=== PATIENT | female | born 1955 | race Caucasian/White ===

== ENCOUNTER 2017-03-08 09:15 | Day surgery (SDC) | payer BC ==
[~2017-03-08 09:15] MED LIST: Bupivacaine 0.5% 10 ML SDV ONE; Lactated Ringers 1,000 ML IV SCH; Lidocaine 1% 20 ML MDV ONE; Midazolam 1 MG/ML 2 ML SDV ONE; Ondansetron 4 MG/2 ML SDV ONE; Propofol 200 MG/20 ML SDV ONE; ceFAZolin 2 GM in Premix Bag 1 BAG IV ONE; fentaNYL 100 MCG/2 ML SDV ONE
--- NOTE | 2017-03-08 09:46 | PCM.PREANE ---
Preanesthetic Assessment - Anesthesia/Transfusion/Family Hx Anesthesia History: Prior Anesthesia Without Reaction Other Type of Anesthesia Reaction Comment: "I have had problems with N/V post anesthesia in the past" Family History of Anesthesia Reaction: No Transfusion History: No Prior Transfusion(s) Intubation History: Unknown - Review of Systems General: No Symptoms Pulmonary: No Symptoms Cardiovascular: No Symptoms Gastrointestinal: No Symptoms Neurological: No Symptoms Other: Reports: None - Physical Assessment Height: 1.68 m Weight: 78.018 kg ASA Class: 2 Mental Status: Alert & Oriented x3 Airway Class: Mallampati = 2 Dentition: Reports: Normal Dentition, Uriah(s) (upper x4 or 5) Thyro-Mental Finger Breadths: 2 Mouth Opening Finger Breadths: 3 ROM/Head Extension: Full Lungs: Clear to Auscultation, Normal Respiratory Effort Cardiovascular: Regular Rate, Regular Rhythm - Allergies Allergies/Adverse Reactions: Allergies Allergy/AdvReac Type Severity Reaction Status Date / Time sulfamethoxazole Allergy Mouth Sores Verified 11/09/15 23:40 [From Bactrim] trimethoprim [From Bactrim] Allergy Mouth Sores Verified 11/09/15 23:40 - Blood Blood Available: No - Anesthesia Plan Pre-Op Medication Ordered: None - Acknowledgements Anesthesia Type Planned: General Anesthesia Pt an Appropriate Candidate for the Planned Anesthesia: Yes Alternatives and Risks of Anesthesia Discussed w Pt/Guardian: Yes Pt/Guardian Understands and Agrees with Anesthesia Plan: Yes PreAnesthesia Questionnaire HEENT History: Reports: Impaired Vision Other HEENT History: wears glasses Cardiovascular History: Reports: None Respiratory History: Reports: None Other Respiratory History: 15 yr history of smoking, QUIT 20 +yrs ago Gastrointestinal History: Reports: Colon Polyp, Diverticulosis, GERD Other Gastrointestinal History: diverticulosis,h/o C.Diff,occasional heart thomas Genitourinary History: Reports: Renal Calculus 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: Musculoskeletal History: Reports: Fracture Other Musculoskeletal History: hx: fracturing a toe, ganglion cyst left foot Neurological History: Reports: Migraines Psychiatric History: Reports: None Endocrine/Metabolic History: Reports: None Hematologic History: Reports: None Immunologic History: Reports: None Oncologic (Cancer) History: Reports: None Dermatologic History: Reports: None - Infectious Disease History Infectious Disease History: Reports: C-Difficile, Chicken Pox, Shingles - Past Surgical History Head Surgeries/Procedures: Reports: None GI Surgical History: Reports: Cholecystectomy, Colonoscopy Other GI Surgeries/Procedures: Lap Carmelita Female Surgical History: Reports: Hysterectomy Musculoskeletal Surgical History: Reports: Arthroscopic Knee, Other (See Below) Other Musculoskeletal Surgeries/Procedures:: knee arthroscopy x3 (right x2, left x1) - SUBSTANCE USE Smoking Status *Q: Former Smoker Tobacco Use Within Last Twelve Months: Cigarettes Recreational Drug Use History: No - HOME MEDS Home Medications: Home Meds Furosemide [Lasix] 40 mg PO DAILY 06/01/15 [History] Potassium Chloride 20 meq PO DAILY 06/01/15 [History] - CURRENT (IN HOUSE) MEDS Current Meds: Current Medications Lactated Ringer's (Ringers, Lactated) 1,000 mls @ 125 mls/hr IV ASDIRECTED LUPE Discontinued Medications Bupivacaine HCl (Sensorcaine-Mpf 0.5%) Confirm Administered Dose 30 ml .ROUTE .STK-MED ONE Stop: 03/08/17 08:29 Fentanyl (Sublimaze) Confirm Administered Dose 100 mcg .ROUTE .STK-MED ONE Stop: 03/08/17 08:20 Cefazolin Sodium/Dextrose 2 gm (/ Premix) 50 mls @ 100 mls/hr IV ONETIME ONE Stop: 03/08/17 06:29 Lidocaine HCl (Xylocaine 1%) Confirm Administered Dose 20 ml .ROUTE .STK-MED ONE Stop: 03/08/17 08:29 Midazolam HCl (Versed 1 Mg/Ml) Confirm Administered Dose 2 mg .ROUTE .STK-MED ONE Stop: 03/08/17 08:20 Ondansetron HCl (Zofran) Confirm Administered Dose 4 mg .ROUTE .STK-MED ONE Stop: 03/08/17 08:19 Propofol (Diprivan 20 Ml) Confirm Administered Dose 200 mg .ROUTE .STK-MED ONE Stop: 03/08/17 08:20
[2017-03-08] MEDS ORDERED: ePHEDrine 50 MG/ML SDV ONE (10:10)
[2017-03-08] MEDS ORDERED: Ketorolac 30 MG/ML SDV ONE (10:52)
[2017-03-08] MEDS ORDERED: Acetaminophen/HYDROcodone 325-5 MG Tab PO PRN (11:23)
--- NOTE | 2017-03-08 11:27 | PCM.OPNOTE ---
- General Post-Op/Procedure Note Date of Surgery/Procedure: 03/08/17 Operative Procedure(s): excision of ganglion cyst left foot Findings: consistent with diagnosis Pre Op Diagnosis: ganglion cyst left foot Post-Op Diagnosis: ganglion cyst left foot Anesthesia Technique: General LMA Anesthesia Provider: Sandi Goldsmith Pathology: contents and remnants of sac of ganglion cyst left foot EBL in mLs: 3 Complications: none Condition: Good Free Text/Narrative:: materials: 4-0 vicryl, 4-0 prolene injectables: 10 ml 0.5% marcaine plain
--- NOTE | 2017-03-08 11:45 | PN ---
Preoperative Progress Note IDENTIFICATION: The patient is a 61-year-old female. DATE OF SURGERY: March 08, 2017. PREOPERATIVE DIAGNOSIS: Ganglion cyst, left foot. PLANNED PROCEDURE: Excision of ganglion cyst, left foot. CONSENT: Signed and in the chart. ANESTHESIA: General. The patient confirms n.p.o. since midnight. HISTORY AND PHYSICAL: Completed by Dr. Mendiola with no contraindications to surgery. ALLERGIES: Noted to Bactrim and Cipro. MEDICATIONS: 1. Furosemide 40 mg oral tablet 1 tablet by mouth daily. 2. Potassium chloride crystals extended release 20 mEq oral tablet 1 tablet by mouth daily with furosemide or as directed. PAST MEDICAL HISTORY: History of acute medial meniscus tear of the right knee, diverticulitis, elevated glucose, Clostridium difficile infection, colonoscopy, allergic rhinitis, candidiasis of the mouth, conjunctivitis, diverticulosis, hemorrhagic cystitis, migraine headaches, oral aphthous ulcers, weakness, influenza A and scopes of both the knees. Active problems: 1. Bilateral lower extremity edema. 2. Ganglion cyst of the left foot. 3. Left foot pain. 4. Obesity. 5. Paresthesias of bilateral legs. PAST SURGICAL HISTORY: History of complete colonoscopy, history of gallbladder surgery, history of hysterectomy not due to cancer, and history of knee surgery. LABORATORY DATA: Sodium 142, potassium 4.0, chloride 106, CO2 of 30, glucose 96, BUN 19, creatinine 0.7. The patient presents for excision of ganglion cyst, left foot surgery today, no contraindications to surgery are noted. No guarantees given or implied. CHARLEY / MOUSTAPHA /[id number]
[2017-03-08 14:01] VITALS: BP 116/71
--- NOTE | 2017-03-08 19:09 | OR ---
SURGEON: Truman Martinez DPM DATE OF PROCEDURE: 03/08/2017 PREOPERATIVE DIAGNOSIS: Ganglion cyst, left foot. POSTOPERATIVE DIAGNOSIS: Ganglion cyst, left foot. PROCEDURE PERFORMED: Excision of ganglion cyst, left foot. CONSENT: Signed and in the chart. ANESTHESIA: General. HEMOSTASIS: Above-ankle pneumatic tourniquet inflated to a pressure of 250 mmHg after an Esmarch bandage exsanguination of the left foot. JUSTIFICATION FOR THE PROCEDURE: The patient is an established patient of mine, who underwent aspiration of the ganglion cyst in my office a number of months ago and has had a return of the ganglion cyst with worsening of symptoms including a larger size and greater pain and tenderness. The patient desires a treatment which is more likely to be lasting and we discussed the pros and cons of surgery. I explained that even surgically ganglion cysts may return, however, there is a lower recurrence generally than simply aspirating. The patient desires surgical treatment and I agreed to perform surgery. All the patient's questions were answered and no guarantees have been expressed or implied. The patient consented for surgery. The consent was then placed in the patient's chart after being witnessed and signed by the patient. DESCRIPTION OF PROCEDURE: The procedure is excision of ganglion cyst, left foot. The patient was brought to the operating room, placed on the operating table in a supine position. At which time, an aseptic scrub and drape was performed about the patient's left lower extremity and general anesthesia was administered. Esmarch bandage exsanguination was used to exsanguinate the left lower extremity and the pneumatic ankle tourniquet was inflated to a pressure of 250 mmHg. Utilizing the incision line which had been planned with a marking pen prior to inflation of the tourniquet. A curvilinear incision measuring approximately 4 cm was performed over the dorsal lateral rear foot in the area of the cuboid 5th metatarsal articulation directly over the palpated and easily identified protrusion in the skin indicating the presence of the ganglion cyst at that location. Incision was carried down through the skin and subcutaneous tissue, with all small bleeders bovied as necessary. Neurovascular structures were retracted out of the path of the incision and the cyst was immediately identified and was undermined using a combination of blunt and sharp dissection with care being taken to preserve all vital structures and to protect the peroneus tertius tendon to which the cyst was identified to be adhering to. The cyst was ruptured during the course of the excision and the material from within this sac was saved and placed in a sterile specimen, cup along with the remnants of the sac that were dissected for examination by pathology. The site was reinspected and any remaining remnants of the ganglion cyst sac were dissected away and added to the specimen for pathology. The entire area was flushed with copious amounts of normal sterile saline and reinspected at which point, a layered closure began. The deep and subcutaneous tissue was reapproximated using 4-0 Vicryl suture and the superficial skin was closed with 4-0 Prolene suture in a horizontal mattress fashion. 10 mL of 0.5% Marcaine plain was then infiltrated about the surgical site and it was covered with Betadine-soaked Xeroform gauze, 4x4 gauze, fluff 4x4 gauze, Kerlix roll, and secured with an Russ bandage. At which time, the tourniquet was deflated at a time of 46 minutes. The patient had an immediate hyperemic response to all digits of the left foot upon deflation of the tourniquet and tolerated the procedure and anesthesia well with no complications noted. The patient was transported to the recovery room, and after a brief stay in the recovery room, the patient is to be discharged later today. She has written instructions being provided as well as oral for postoperative care and follow up with me on Monday in my office. The patient has been provided with my cell phone number in case any concerns arise. The patient has been provided with a prescription for analgesic care. The patient has been provided with a shower bag to keep her dressings clean and dry. The patient has been provided and had a postoperative shoe affixed in the recovery room today to protect her foot and is to minimize weightbearing. CHARLEY / MOUSTAPHA /[id number]
== END 2017-03-08 12:58 | disposition home or self-care (01) ==
LOC: MW.SDS 09:15
PROVIDERS: ATTEND Podiatrist Foot & Ankle Surgery
DX: M67.472 Ganglion, left ankle and foot (principal); E66.9 Obesity, unspecified; Z88.1 Allergy status to other antibiotic agents; Z88.8 Allergy status to other drugs, medicaments and biological substances; J30.2 Other seasonal allergic rhinitis; Z79.899 Other long term (current) drug therapy; Z90.710 Acquired absence of both cervix and uterus; Z98.890 Other specified postprocedural states; Z87.891 Personal history of nicotine dependence; Z68.27 Body mass index [BMI] 27.0-27.9, adult
CPT/HCPCS: 28090; J1885; J2250; J2405; J3010; J7120; 01480; 88304; J2704

== ENCOUNTER 2019-05-07 10:04 | Day surgery (SDC) | payer BC ==
[~2019-05-07 10:04] MED LIST changes: -Bupivacaine 0.5% 10 ML SDV ONE; -Lidocaine 1% 20 ML MDV ONE; +Lidocaine 2% 5 ML SDV ONE; -Midazolam 1 MG/ML 2 ML SDV ONE; -Ondansetron 4 MG/2 ML SDV ONE; +Sodium Chloride 0.9% 10 ML SDV IV PRN; +Sodium Chloride 0.9% 10 ML Syringe FLUSH PRN; +Sodium Chloride 0.9% 2.5 ML Syringe FLUSH PRN; -ceFAZolin 2 GM in Premix Bag 1 BAG IV ONE
--- NOTE | 2019-05-07 10:21 | PCM.PREANE ---
Preanesthetic Assessment - Anesthesia/Transfusion/Family Hx Anesthesia History: Prior Anesthesia Without Reaction Other Type of Anesthesia Reaction Comment: "I have had problems with N/V post anesthesia in the past" Family History of Anesthesia Reaction: No Transfusion History: No Prior Transfusion(s) Intubation History: Unknown - Review of Systems General: No Symptoms Pulmonary: No Symptoms Cardiovascular: No Symptoms Gastrointestinal: Abdominal Pain (rectal pain), Constipation, Diarrhea, Other (h /o colon polyps, diverticulosis and diverticulitis) Neurological: No Symptoms Other: Reports: None - Physical Assessment Height: 5 ft 6 in Weight: 80.286 kg ASA Class: 2 Mental Status: Alert & Oriented x3 Airway Class: Mallampati = 2 Dentition: Reports: Normal Dentition Thyro-Mental Finger Breadths: 2 Mouth Opening Finger Breadths: 3 ROM/Head Extension: Full Lungs: Clear to Auscultation, Normal Respiratory Effort Cardiovascular: Regular Rate, Regular Rhythm - Allergies Allergies/Adverse Reactions: Allergies Allergy/AdvReac Type Severity Reaction Status Date / Time sulfamethoxazole Allergy Mouth Sores Verified 05/01/19 08:57 [From Bactrim] trimethoprim [From Bactrim] Allergy Mouth Sores Verified 05/01/19 08:57 - Blood Blood Available: No - Anesthesia Plan Pre-Op Medication Ordered: None - Acknowledgements Anesthesia Type Planned: MAC Pt an Appropriate Candidate for the Planned Anesthesia: Yes Alternatives and Risks of Anesthesia Discussed w Pt/Guardian: Yes Pt/Guardian Understands and Agrees with Anesthesia Plan: Yes PreAnesthesia Questionnaire HEENT History: Reports: Allergic Rhinitis, Impaired Vision, Other (See Below) Other HEENT History: wears glasses Cardiovascular History: Reports: None Respiratory History: Reports: None Gastrointestinal History: Reports: Colon Polyp, Diverticulosis Other Gastrointestinal History: diverticulosis,h/o C.Diff,occasional heart burn , hx diverticulitis Genitourinary History: Reports: Renal Calculus 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: Musculoskeletal History: Reports: Back Pain, Chronic, Fracture Other Musculoskeletal History: hx: fracturing a toe, ganglion cyst left foot Neurological History: Reports: None Psychiatric History: Reports: None Endocrine/Metabolic History: Reports: None Hematologic History: Reports: None Immunologic History: Reports: None Oncologic (Cancer) History: Reports: None Dermatologic History: Reports: None - Infectious Disease History Infectious Disease History: Reports: C-Difficile, Chicken Pox, Shingles - Past Surgical History Head Surgeries/Procedures: Reports: None HEENT Surgical History: Reports: None Cardiovascular Surgical History: Reports: None Respiratory Surgical History: Reports: None GI Surgical History: Reports: Cholecystectomy, Colonoscopy ( x5, last one 3 years ago) Other GI Surgeries/Procedures: Lap Carmelita Female Surgical History: Reports: Hysterectomy Endocrine Surgical History: Reports: None Neurological Surgical History: Reports: None Musculoskeletal Surgical History: Reports: Arthroscopic Knee, Other (See Below) Other Musculoskeletal Surgeries/Procedures:: knee arthroscopy x3 (right x2, left x1) Oncologic Surgical History: Reports: None Dermatological Surgical History: Reports: None - SUBSTANCE USE Smoking Status *Q: Former Smoker Tobacco Use Within Last Twelve Months: No Recreational Drug Use History: No - HOME MEDS Home Medications: Home Meds Furosemide [Lasix] 40 mg PO DAILY PRN 06/01/15 [History] Potassium Chloride 20 meq PO DAILY PRN 06/01/15 [History] Azelastine/Fluticasone [Dymista Nasal Mobile] 1 spray NASBOTH ASDIRECTED PRN 04/09 [History] LORazepam [Ativan] 0.5 - 1 tab PO ASDIRECTED PRN 05/01/19 [History] - CURRENT (IN HOUSE) MEDS Current Meds: Current Medications Lactated Ringer's (Ringers, Lactated) 1,000 mls @ 125 mls/hr IV ASDIRECTED LUPE Sodium Chloride (Saline Flush) 10 ml FLUSH ASDIRECTED PRN PRN Reason: Keep Vein Open Sodium Chloride (Saline Flush) 2.5 ml FLUSH ASDIRECTED PRN PRN Reason: Keep Vein Open Sodium Chloride (Saline Flush) 10 ml FLUSH ASDIRECTED PRN PRN Reason: Keep Vein Open Sodium Chloride (Saline Flush) 2.5 ml FLUSH ASDIRECTED PRN PRN Reason: Keep Vein Open Sodium Chloride (Normal Saline) 10 ml IV ASDIRECTED PRN PRN Reason: IV Use Discontinued Medications Fentanyl (Sublimaze) Confirm Administered Dose 100 mcg .ROUTE .STK-MED ONE Stop: 05/07/19 09:37 Lidocaine (Xylocaine-Mpf 2%) Confirm Administered Dose 5 ml .ROUTE .STK-MED ONE Stop: 05/07/19 09:37 Propofol (Diprivan 20 Ml) Confirm Administered Dose 400 mg .ROUTE .STK-MED ONE Stop: 05/07/19 09:37
--- NOTE | 2019-05-07 12:02 | PCM.POSTAN ---
POST ANESTHESIA ASSESSMENT - MENTAL STATUS Mental Status: Alert, Oriented - VITAL SIGNS Vital Signs: Last Vital Signs Temp 36.4 C 05/07/19 11:32 Pulse 69 05/07/19 11:51 Resp 17 05/07/19 11:51 BP 106/57 L 05/07/19 11:51 Pulse Ox 95 05/07/19 11:51 - RESPIRATORY Respiratory Status: Respiratory Rate WNL, Airway Patent, O2 Saturation Stable - CARDIOVASCULAR CV Status: Pulse Rate WNL, Blood Pressure Stable - GASTROINTESTINAL GI Status: No Symptoms - PAIN Pain Score: 0 - POST OP HYDRATION Hydration Status: Adequate & Stable - OBSERVATIONS Free Text/Narrative:: no anesthesia problems
--- NOTE | 2019-05-07 12:20 | PCM48HPAN ---
Post Anesthesia Note - EVALUATION WITHIN 48HRS OF ANESTHETIC Vital Signs in Normal Range: Yes Patient Participated in Evaluation: Yes Respiratory Function Stable: Yes Airway Patent: Yes Cardiovascular Function Stable: Yes Hydration Status Stable: Yes Pain Control Satisfactory: Yes Nausea and Vomiting Control Satisfactory: Yes Mental Status Recovered: Yes Vital Signs: Last Vital Signs Temp 36.4 C 05/07/19 11:32 Pulse 69 05/07/19 11:51 Resp 17 05/07/19 11:51 BP 106/57 L 05/07/19 11:51 Pulse Ox 95 05/07/19 11:51 - COMMENTS/OBSERVATIONS Free Text/Narrative:: no anesthesia problems
[2019-05-07 12:22] VITALS: BP 128/58; PULSE 87
--- NOTE | 2019-05-07 13:30 | PCM.OPNOTE ---
- General Post-Op/Procedure Note Date of Surgery/Procedure: 05/07/19 Operative Procedure(s): Diagnostic colonoscopy Findings: diverticulosis throughout the colon. Ascending colon polyp Pre Op Diagnosis: Diagnostic colonoscopy Post-Op Diagnosis: Ascending colon polyp, diverticulosis Anesthesia Technique: MELVI Primary Surgeon: Tiffanie Archuleta Condition: Good Free Text/Narrative:: Intake & Output 05/06/19 05/07/19 05/07/19 22:59 06:59 14:59 Intake Total 1000 Balance 1000
--- NOTE | 2019-05-09 18:33 | OR ---
SURGEON: TIFFANIE ARCHULETA MD DATE OF PROCEDURE: 05/07/2019 PREOPERATIVE DIAGNOSIS: Change in bowel habits. POSTOPERATIVE DIAGNOSES: 1. Diverticulosis. 2. Ascending colon polyp. PROCEDURE PERFORMED: Diagnostic colonoscopy. PRIMARY SURGEON: Tiffanie Archuleta MD. ANESTHESIA: MAC. INSTRUMENT USED: Olympus colonoscope. EXTENT OF EXAM: To the cecum. PREPARATION: Good. LIMITATIONS: None. INDICATIONS FOR EXAMINATION: The patient is a 64-year-old female who presents with a change in her bowel habits and lower abdominal pain. The decision was made to proceed with a diagnostic colonoscopy. I explained the procedure; expected perioperative course; and risks including bleeding, infection, or damage to surrounding structures including perforation. The patient verbalized understanding and wishes to proceed. PROCEDURE IN DETAIL: The patient was brought into the endoscopy suite and placed in the left lateral decubitus position. A time-out was completed verifying the patient's name, age, date of , allergies, and procedure to be performed. Monitored anesthesia care was induced and continuous oxygen was provided via nasal cannula throughout the procedure. After adequate sedation was achieved, a digital rectal exam was performed. This exam was within normal limits. A well-lubricated colonoscope was inserted in the rectum and advanced under direct visualization to the level of the cecum. The cecum was identified by both visual and anatomic landmarks. A photograph was taken of the cecal cap; however, I was unable to retroflex the scope within the cecum due to looping of the scope more proximally. The scope was then straightened out and fully withdrawn while examining the color, texture, anatomy, and integrity of the mucosa from the cecum to the anal canal. The patient was found to have diverticulosis throughout the sigmoid colon. In the ascending colon, a small sessile polyp was noted. This was removed in piecemeal fashion using cold biopsy forceps. The scope was then brought into the rectum and retroflexed to allow visualization of the anal canal opening. This appeared normal and a photograph was taken. The scope was then straightened out and fully withdrawn. The cecum to anus time was 9 minutes. The patient tolerated the procedure well and was taken to the PACU in stable condition. ENDOSCOPIC DIAGNOSES: 1. Diverticulosis. 2. Ascending colon polyp. RECOMMENDATIONS: Follow up in clinic in 2 weeks. PAVEL GERARD /[id number]
== END 2019-05-07 12:27 | disposition home or self-care (01) ==
LOC: MW.SDS 10:04
PROVIDERS: ATTEND Surgery
DX: K57.30 Diverticulosis of large intestine without perforation or abscess without bleeding (principal); K63.5 Polyp of colon; M47.816 Spondylosis without myelopathy or radiculopathy, lumbar region; G43.909 Migraine, unspecified, not intractable, without status migrainosus; J30.2 Other seasonal allergic rhinitis; Z88.2 Allergy status to sulfonamides; Z88.1 Allergy status to other antibiotic agents; Z87.891 Personal history of nicotine dependence; Z79.899 Other long term (current) drug therapy
CPT/HCPCS: 45380; J2001; J2704; J3010; J7120; 88305

== ENCOUNTER 2019-07-12 05:59 | Observation (INO) | payer BC ==
[2019-07-12] MEDS ORDERED: Sodium Chloride 0.9% 2.5 ML Syringe FLUSH PRN (06:05)
[2019-07-12] MEDS ORDERED: Sodium Chloride 0.9% 10 ML Syringe FLUSH PRN (06:05)
[2019-07-12] MEDS ORDERED: Sodium Chloride 0.9% 10 ML SDV IV PRN (06:05)
--- NOTE | 2019-07-12 06:14 | EDM.PDOC ---
ED HPI GENERAL MEDICAL PROBLEM - General Chief Complaint: Neurological Problem Stated Complaint: DISORIENTED Time Seen by Provider: 07/12/19 06:07 Source of Information: Reports: Patient, Significant Other - History of Present Illness INITIAL COMMENTS - FREE TEXT/NARRATIVE: Patient is a 64-year-old female with no medical problems who presents to the ER for confusion. She was getting ready for work and then she woke her up and told him "I am confused". That is all she keeps telling us over and over. The patient's states that all of her recent memory seems to be gone. She does not recall things that she put down the night before, she does not know the time or date, she recognizes him but she does not recognize some of the grandchildren,. There is no complaints of any speech impediments, weakness , recent trauma, fevers, or any other acute complaints. - Related Data Allergies Allergy/AdvReac Type Severity Reaction Status Date / Time sulfamethoxazole Allergy Mouth Sores Verified 07/12/19 11:42 [From Bactrim] trimethoprim [From Bactrim] Allergy Mouth Sores Verified 07/12/19 11:42 Home Meds: Home Meds Furosemide [Lasix] 40 mg PO DAILY PRN 06/01/15 [History] Potassium Chloride 20 meq PO DAILY PRN 06/01/15 [History] Azelastine/Fluticasone [Dymista Nasal [place]] 1 spray NASBOTH ASDIRECTED PRN 04/09 [History] LORazepam [Ativan] 0.5 - 1 tab PO ASDIRECTED PRN 05/01/19 [History] Past Medical History HEENT History: Reports: Allergic Rhinitis, Impaired Vision, Other (See Below) Other HEENT History: wears glasses Cardiovascular History: Reports: None Respiratory History: Reports: None Gastrointestinal History: Reports: Colon Polyp, Diverticulosis Other Gastrointestinal History: diverticulosis,h/o C.Diff,occasional heart burn , hx diverticulitis Genitourinary History: Reports: Renal Calculus [employer] History: Reports: Musculoskeletal History: Reports: Back Pain, Chronic, Fracture Other Musculoskeletal History: hx: fracturing a toe, ganglion cyst left foot Neurological History: Reports: None Psychiatric History: Reports: None Endocrine/Metabolic History: Reports: None Hematologic History: Reports: None Immunologic History: Reports: None Oncologic (Cancer) History: Reports: None Dermatologic History: Reports: None - Infectious Disease History Infectious Disease History: Reports: C-Difficile, Chicken Pox, Shingles - Past Surgical History Head Surgeries/Procedures: Reports: None HEENT Surgical History: Reports: None Cardiovascular Surgical History: Reports: None Respiratory Surgical History: Reports: None GI Surgical History: Reports: Cholecystectomy, Colonoscopy Other GI Surgeries/Procedures: Lap [place] Female Surgical History: Reports: Hysterectomy Endocrine Surgical History: Reports: None Neurological Surgical History: Reports: None Musculoskeletal Surgical History: Reports: Arthroscopic Knee, Other (See Below) Other Musculoskeletal Surgeries/Procedures:: knee arthroscopy x3 (right x2, left x1) Oncologic Surgical History: Reports: None Dermatological Surgical History: Reports: None Social & Family History - Family History Family Medical History: Noncontributory ED ROS GENERAL - Review of Systems Review Of Systems: See Below (Patient has altered mental status) - Physical Exam Exam: See Below Text/Narrative:: Constitutional: No acute distress, Non-toxic appearance, appears anxious HEENT.: Normocephalic, Atraumatic, PERRL, EOMI, External ears are atraumatic, nares are patent without epistaxis Neck: Normal range of motion, Trachea Midline, No stridor Respiratory.: No respiratory distress, No tachypnea, Lungs Clear to Auscultation bilaterally without wheezes, rales, or rhonchi Cardiovascular.: Regular rate and Rhythm without murmurs, rubs, or gallops, good peripheral perfusion GI: Abdomen soft and non tender, no masses, no rebound, rigidity, or guarding Genital Urinary: Deferred Musculoskeletal: Good range of motion. All 4 extremities present and atraumatic , no edema Back: Full Range of Motion Skin: Warm, Dry, Color is ethnicity appropriate, No acute rash. Lymphatic: No lymphadenopathy noted Neurological: Alert, Awake, oriented to self only, No focal deficits noted appreciate, GCS 15, amnestic, recognizes her , does not know the names of most of her grandchildren, does not know recent events, NIH 0 Psych: Pleasant and cooperative but appears anxious Course - Vital Signs Text/Narrative:: While the differential diagnosis is broad, I do not feel that the patient is exhibiting a stroke as her only symptom is amnesia, possibly consistent with transient global amnesia or a recent seizure. She has no speech impediment, no sensory loss, no motor complaints, no gait abnormalities, etc. However, given the obvious altered mental status changes a work-up has been initiated which will include a CT scan of the brain to look for obvious pathology such as an intracranial hemorrhage, subarachnoid hemorrhage, hydrocephalus, obvious brain mass, cerebral edema, hyponatremia, hypernatremia, hyperosmolar syndrome, leukemias, lymphomas, acute renal failure, etc. Last Recorded V/S: Last Vital Signs Temp 36.7 C 07/13/19 11:00 Pulse 75 07/13/19 11:00 Resp 16 07/13/19 07:20 BP 121/66 07/13/19 11:00 Pulse Ox 94 L 07/13/19 11:00 - Orders/Labs/Meds Labs: Laboratory Tests 07/12/19 07/12/19 07/12/19 Range/Units 06:08 06:08 06:24 WBC 4.21 (4.0-11.0) K/uL RBC 4.68 (4.30-5.90) M/uL Hgb 14.7 (12.0-16.0) g/dL Hct 42.9 (36.0-46.0) % MCV 91.7 (80.0-98.0) fL MCH 31.4 (27.0-32.0) pg MCHC 34.3 (31.0-37.0) g/dL RDW Std Deviation 47.8 (28.0-62.0) fl RDW Coeff of Cat 14 (11.0-15.0) % Plt Count 192 (150-400) K/uL MPV 9.30 (7.40-12.00) fL Neut % (Auto) 56.3 (48.0-80.0) % Lymph % (Auto) 26.6 (16.0-40.0) % [place] % (Auto) 12.8 (0.0-15.0) % Eos % (Auto) 3.1 (0.0-7.0) % Baso % (Auto) 1.2 (0.0-1.5) % Neut # (Auto) 2.4 (1.4-5.7) K/uL Lymph # (Auto) 1.1 (0.6-2.4) K/uL [place] # (Auto) 0.5 (0.0-0.8) K/uL Eos # (Auto) 0.1 (0.0-0.7) K/uL Baso # (Auto) 0.1 (0.0-0.1) K/uL Nucleated RBC % 0.0 /100WBC Nucleated RBCs # 0 K/uL Sodium 145 (136-145) mmol/L Potassium 3.5 (3.5-5.1) mmol/L Chloride 106 (98-107) mmol/L Carbon Dioxide 29.1 (21.0-32.0) mmol/L BUN 16 (7.0-18.0) mg/dL Creatinine 0.8 (0.6-1.0) mg/dL Est Cr Clr Drug Dosing 67.38 mL/min Estimated GFR (MDRD) > 60.0 ml/min Glucose 119 H (74-106) mg/dL Calcium 9.1 (8.5-10.1) mg/dL Total Bilirubin 1.4 H (0.2-1.0) mg/dL AST 16 (15-37) IU/L ALT 29 (14-63) IU/L Alkaline Phosphatase 122 H (46-116) U/L Total Protein 6.6 (6.4-8.2) g/dL Albumin 3.7 (3.4-5.0) g/dL Globulin 2.9 (2.6-4.0) g/dL Albumin/Globulin Ratio 1.3 (0.9-1.6) Urine Color YELLOW Urine Appearance CLEAR Urine pH 6.0 (5.0-8.0) Ur Specific [place] 1.020 (1.001-1.035) Urine Protein NEGATIVE (NEGATIVE) mg/dL Urine Glucose (UA) NEGATIVE (NEGATIVE) mg/dL Urine Ketones NEGATIVE (NEGATIVE) mg/dL Urine Occult Blood NEGATIVE (NEGATIVE) Urine Nitrite NEGATIVE (NEGATIVE) Urine Bilirubin NEGATIVE (NEGATIVE) Urine Urobilinogen 0.2 (<2.0) EU/dL Ur Leukocyte Esterase NEGATIVE (NEGATIVE) Urine RBC 0-1 (0-2/HPF) Urine WBC 0-1 (0-5/HPF) Ur Epithelial Cells RARE (NONE-FEW) Urine Bacteria RARE (NEGATIVE) Urine Opiates Screen (NEGATIVE) Ur Oxycodone Screen (NEGATIVE) Urine Methadone Screen (NEGATIVE) Ur Barbiturates Screen (NEGATIVE) Ur Phencyclidine Scrn (NEGATIVE) Ur Amphetamine Screen (NEGATIVE) U Methamphetamines Scrn (NEGATIVE) U Benzodiazepines Scrn (NEGATIVE) U Cocaine Metab Screen (NEGATIVE) U Marijuana (THC) Screen (NEGATIVE) Ethyl Alcohol <3 mg/dL 07/12/19 Range/Units 06:24 WBC (4.0-11.0) K/uL RBC (4.30-5.90) M/uL Hgb (12.0-16.0) g/dL Hct (36.0-46.0) % MCV (80.0-98.0) fL MCH (27.0-32.0) pg MCHC (31.0-37.0) g/dL RDW Std Deviation (28.0-62.0) fl RDW Coeff of Cat (11.0-15.0) % Plt Count (150-400) K/uL MPV (7.40-12.00) fL Neut % (Auto) (48.0-80.0) % Lymph % (Auto) (16.0-40.0) % [place] % (Auto) (0.0-15.0) % Eos % (Auto) (0.0-7.0) % Baso % (Auto) (0.0-1.5) % Neut # (Auto) (1.4-5.7) K/uL Lymph # (Auto) (0.6-2.4) K/uL [place] # (Auto) (0.0-0.8) K/uL Eos # (Auto) (0.0-0.7) K/uL Baso # (Auto) (0.0-0.1) K/uL Nucleated RBC % /100WBC Nucleated RBCs # K/uL Sodium (136-145) mmol/L Potassium (3.5-5.1) mmol/L Chloride (98-107) mmol/L Carbon Dioxide (21.0-32.0) mmol/L BUN (7.0-18.0) mg/dL Creatinine (0.6-1.0) mg/dL Est Cr Clr Drug Dosing mL/min Estimated GFR (MDRD) ml/min Glucose (74-106) mg/dL Calcium (8.5-10.1) mg/dL Total Bilirubin (0.2-1.0) mg/dL AST (15-37) IU/L ALT (14-63) IU/L Alkaline Phosphatase (46-116) U/L Total Protein (6.4-8.2) g/dL Albumin (3.4-5.0) g/dL Globulin (2.6-4.0) g/dL Albumin/Globulin Ratio (0.9-1.6) Urine Color Urine Appearance Urine pH (5.0-8.0) Ur Specific [place] (1.001-1.035) Urine Protein (NEGATIVE) mg/dL Urine Glucose (UA) (NEGATIVE) mg/dL Urine Ketones (NEGATIVE) mg/dL Urine Occult Blood (NEGATIVE) Urine Nitrite (NEGATIVE) Urine Bilirubin (NEGATIVE) Urine Urobilinogen (<2.0) EU/dL Ur Leukocyte Esterase (NEGATIVE) Urine RBC (0-2/HPF) Urine WBC (0-5/HPF) Ur Epithelial Cells (NONE-FEW) Urine Bacteria (NEGATIVE) Urine Opiates Screen NEGATIVE (NEGATIVE) Ur Oxycodone Screen NEGATIVE (NEGATIVE) Urine Methadone Screen NEGATIVE (NEGATIVE) Ur Barbiturates Screen NEGATIVE (NEGATIVE) Ur Phencyclidine Scrn NEGATIVE (NEGATIVE) Ur Amphetamine Screen NEGATIVE (NEGATIVE) U Methamphetamines Scrn NEGATIVE (NEGATIVE) U Benzodiazepines Scrn NEGATIVE (NEGATIVE) U Cocaine Metab Screen NEGATIVE (NEGATIVE) U Marijuana (THC) Screen NEGATIVE (NEGATIVE) Ethyl Alcohol mg/dL Meds: Medications Discontinued Medications Generic Name Dose Route Start Last Admin Trade Name Freq PRN Reason Stop Dose Admin Acetaminophen 650 mg 07/12/19 12:52 07/13/19 11:05 Tylenol PO 650 mg Q4H PRN Administration Pain (Mild 1-3)/fever Docusate Sodium 100 mg 07/12/19 12:52 Colace PO BID PRN Constipation Enoxaparin Sodium 40 mg 07/12/19 13:00 07/12/19 13:37 Lovenox SUBCUT 40 mg Q24H LUPE Administration Furosemide 40 mg 07/12/19 12:55 Lasix PO DAILY PRN Edema Gadobenate [place] 20 ml 07/12/19 08:11 07/12/19 08:29 Multihance IVPUSH 07/12/19 08:12 15 ml ONETIME STA Administration Ibuprofen 800 mg 07/12/19 12:52 Motrin PO Q6H PRN Pain (mild 1-3) Ibuprofen 400 mg 07/13/19 11:54 07/13/19 12:56 Motrin PO 07/13/19 11:55 400 mg ONETIME ONE Administration Lorazepam 0.5 mg 07/12/19 07:35 07/12/19 07:41 Ativan IVPUSH 07/12/19 07:36 0.5 mg ONETIME ONE Administration Lorazepam 1 mg 07/12/19 12:55 Ativan PO Q8H PRN Anxiety Ondansetron HCl 4 mg 07/12/19 12:52 Zofran Odt PO Q4H PRN nausea, able to take PO Ondansetron HCl 4 mg 07/12/19 12:52 Zofran IVPUSH Q4H PRN Nausea Azelastine/ 1 each 07/12/19 12:55 Fluticasone [Dymista NASBOTH Nasal [place]] 1 ASDIRECTED PRN [place] sinus congestion Polyethylene Glycol 17 gm 07/12/19 12:52 Miralax PO DAILY PRN Constipation Sodium Chloride 10 ml 07/12/19 06:05 07/12/19 09:31 Saline Flush FLUSH 10 ml ASDIRECTED PRN Administration Keep Vein Open Sodium Chloride 2.5 ml 07/12/19 06:05 07/12/19 09:31 Saline Flush FLUSH 2.5 ml ASDIRECTED PRN Administration Keep Vein Open Sodium Chloride 10 ml 07/12/19 06:05 07/12/19 09:31 Normal Saline IV 10 ml ASDIRECTED PRN Administration IV Use Temazepam 15 mg 07/12/19 12:52 Restoril PO BEDTIME PRN Sleep Departure - Departure Time of Disposition: 07:00 Disposition: Admitted As Inpatient 67 Condition: Good, Fair Clinical Impression: Altered mental status - Discharge Information *PRESCRIPTION DRUG MONITORING PROGRAM REVIEWED*: Not Applicable *COPY OF PRESCRIPTION DRUG MONITORING REPORT IN PATIENT LUZMARIA: Not Applicable Sepsis Event Note - Focused Exam Date Exam was Performed: 07/23/19 Time Exam was Performed: 19:07
--- NOTE | 2019-07-12 06:30 | CT ---
INDICATION: Altered mental status TECHNIQUE: CT head without contrast. COMPARISON: None. FINDINGS: CSF spaces: Within normal limits for age. Brain parenchyma and extra-axial spaces: The perez-white differentiation is normal. No sign of mass, hemorrhage, or midline shift. No extra-axial fluid collection. Skull base and calvarium: The visualized paranasal sinuses and mastoid air cells demonstrate no acute or significant findings. The visualized orbits are grossly unremarkable. No skull fractures. IMPRESSION: Unremarkable noncontrast head CT. Please note that all CT scans at this facility use dose modulation, iterative reconstruction, and/or weight-based dosing when appropriate to reduce radiation dose to as low as reasonably achievable. Dictated by Eloy Reynolds MD @ Jul 12 2019 6:27AM Signed by Dr. Eloy Reynolds @ Jul 12 2019 6:29AM
[2019-07-12 06:45] LABS: BLOOD UREA NITROGEN,BUN 16 mg/dL (7.0-18.0); CARBON DIOXIDE,CO2 29.1 mmol/L (21.0-32.0); CHLORIDE,CL 106 mmol/L (98-107); GLUCOSE RANDOM 119 mg/dL (74-106); POTASSIUM,K 3.5 mmol/L (3.5-5.1); SODIUM,NA 145 mmol/L (136-145)
[2019-07-12] MEDS ORDERED: LORazepam 2 MG/ML SDV IVPUSH ONE (07:35)
[2019-07-12] MEDS ORDERED: Gadobenate Dimeglumine 529 MG/ML 20 ML SDV IVPUSH STA (08:11)
--- NOTE | 2019-07-12 09:35 | MR ---
INDICATION: New onset confusion. TECHNIQUE: MRI brain: Multiplanar multisequence MR images were acquired through the brain prior to and following administration of intravenous contrast. MRA head: 3D [id number] MRA images were acquired. COMPARISON: CT brain 07/12/2019. FINDINGS: MRI brain: Motion artifact degrades multiple sequences, including marked degradation of the sagittal T1 sequence. The ventricles and sulci within normal limits for patient age. No mass effect or midline shift. Punctate focus of T2 FLAIR hyperintensity within the subcortical white matter of the anterior left frontal lobe (series 17, image 18), nonspecific though potentially related to migraine headaches or minimal chronic microvascular ischemic changes. No diffusion restriction to suggest acute infarction. No intracranial hemorrhage or pathologic extra-axial fluid collection. No pathologic intracranial enhancement. The major arterial flow voids of the skullbase are preserved. The globes are symmetric in size. The paranasal sinuses are well aerated. The mastoid air cells are clear. MRA head: Motion artifact mildly degrades image quality. The visualized internal carotid, middle cerebral, and anterior cerebral arteries are patent without significant narrowing. The vertebral, basilar, and posterior cerebral arteries are patent without significant narrowing. No intracranial aneurysm. IMPRESSION: 1. No acute intracranial abnormality. 2. No MRA abnormality of the visualized intracranial arteries. Dictated by Magdaleno Bender MD @ Jul 12 2019 9:24AM Signed by Dr. Magdaleno Bender @ Jul 12 2019 9:34AM
--- NOTE | 2019-07-12 09:35 | MR ---
INDICATION: New onset confusion. TECHNIQUE: MRI brain: Multiplanar multisequence MR images were acquired through the brain prior to and following administration of intravenous contrast. MRA head: 3D [id number] MRA images were acquired. COMPARISON: CT brain 07/12/2019. FINDINGS: MRI brain: Motion artifact degrades multiple sequences, including marked degradation of the sagittal T1 sequence. The ventricles and sulci within normal limits for patient age. No mass effect or midline shift. Punctate focus of T2 FLAIR hyperintensity within the subcortical white matter of the anterior left frontal lobe (series 17, image 18), nonspecific though potentially related to migraine headaches or minimal chronic microvascular ischemic changes. No diffusion restriction to suggest acute infarction. No intracranial hemorrhage or pathologic extra-axial fluid collection. No pathologic intracranial enhancement. The major arterial flow voids of the skullbase are preserved. The globes are symmetric in size. The paranasal sinuses are well aerated. The mastoid air cells are clear. MRA head: Motion artifact mildly degrades image quality. The visualized internal carotid, middle cerebral, and anterior cerebral arteries are patent without significant narrowing. The vertebral, basilar, and posterior cerebral arteries are patent without significant narrowing. No intracranial aneurysm. IMPRESSION: 1. No acute intracranial abnormality. 2. No MRA abnormality of the visualized intracranial arteries. Dictated by Magdaleno Bender MD @ Jul 12 2019 9:18AM Signed by Dr. Magdaleno Bender @ Jul 12 2019 9:33AM
--- NOTE | 2019-07-12 12:50 | PCM.CONS ---
H&P History of Present Illness - General Date of Service: 07/12/19 Admit Problem/Dx: Admission Diagnosis/Problem Admission Diagnosis/Problem Amnesia - History of Present Illness Initial Comments - Free Text/Narative: She remembers going to bed last night around 10 pm feeling fine. Per her , she got up at 4 am, took a shower, did her usual routine before work and then came to wake him up telling him she was confused and that she needed to go to the ED. She then proceeded to say and ask the same things repeatedly. She knew her . She has no recollection of any of this or going to the ED. She vaguely remembers being in the MRI. Her notes that the memory is improving, but she is still repeating herself. No history of LOC, staring spells, clonic jerks. No OTC medications or illicits. - Related Data Allergies/Adverse Reactions: Allergies Allergy/AdvReac Type Severity Reaction Status Date / Time sulfamethoxazole Allergy Mouth Sores Verified 07/12/19 11:42 [From Bactrim] trimethoprim [From Bactrim] Allergy Mouth Sores Verified 07/12/19 11:42 Home Medications: Home Meds Furosemide [Lasix] 40 mg PO DAILY PRN 06/01/15 [History] Potassium Chloride 20 meq PO DAILY PRN 06/01/15 [History] Azelastine/Fluticasone [Dymista Nasal [place]] 1 spray NASBOTH ASDIRECTED PRN 04/09 [History] LORazepam [Ativan] 0.5 - 1 tab PO ASDIRECTED PRN 05/01/19 [History] Past Medical History HEENT History: Reports: Allergic Rhinitis, Impaired Vision, Other (See Below) Other HEENT History: wears glasses Cardiovascular History: Reports: None Respiratory History: Reports: None Gastrointestinal History: Reports: Colon Polyp, Diverticulosis Other Gastrointestinal History: diverticulosis,h/o C.Diff,occasional heart burn , hx diverticulitis Genitourinary History: Reports: Renal Calculus [employer] History: Reports: Musculoskeletal History: Reports: Back Pain, Chronic, Fracture Other Musculoskeletal History: hx: fracturing a toe, ganglion cyst left foot Neurological History: Reports: Migraines Psychiatric History: Reports: None Endocrine/Metabolic History: Reports: None Hematologic History: Reports: None Immunologic History: Reports: None Oncologic (Cancer) History: Reports: None Dermatologic History: Reports: None - Infectious Disease History Infectious Disease History: Reports: C-Difficile, Chicken Pox, Shingles - Past Surgical History Head Surgeries/Procedures: Reports: None HEENT Surgical History: Reports: None Cardiovascular Surgical History: Reports: None Respiratory Surgical History: Reports: None GI Surgical History: Reports: Cholecystectomy, Colonoscopy Other GI Surgeries/Procedures: Lap [place] Female Surgical History: Reports: Hysterectomy Endocrine Surgical History: Reports: None Neurological Surgical History: Reports: None Musculoskeletal Surgical History: Reports: Arthroscopic Knee, Other (See Below) Other Musculoskeletal Surgeries/Procedures:: knee arthroscopy x3 (right x2, left x1) Oncologic Surgical History: Reports: None Dermatological Surgical History: Reports: Skin Biopsy Social & Family History - Family History Family Medical History: Noncontributory Cardiac: Reports: Hypertension, [place] Other Neurological Family History: Father had a stroke Endocrine/Metabolic: Reports: Diabetes, type II Oncologic: Reports: Non-Hodgkin's Lymphoma, Prostate - Tobacco Use Smoking Status *Q: Former Smoker Years of Tobacco use: 15 Packs/Tins Daily: 1 Used Tobacco, but Quit: Yes Month/Year Tobacco Last Used: 1984 - Caffeine Use Caffeine Use: Reports: Coffee Caffeine Use Comment: 1 Cup/day - Recreational Drug Use Recreational Drug Use: No H&P Review of Systems - Review of Systems: Review Of Systems: Comprehensive ROS is negative, except as noted in HPI. Exam - Exam Exam: See Below - Vital Signs Vital Signs: Last Vital Signs Temp 36.3 C 07/12/19 11:30 Pulse 89 07/12/19 11:30 Resp 18 07/12/19 11:30 BP 124/73 07/12/19 11:30 Pulse Ox 93 L 07/12/19 11:30 Weight: 79.8 kg - Exam Physical Exam Comments:: Constitutional: No acute distress Psychiatric: Mood/Affect: normal/appropriate Neurological: Mental Status: General: Normal activity, good hygiene, appropriate appearance. Level of consciousness: Awake, alert. Orientation: Oriented to person, place, year and month not date. Concentration/Attention Span: Normal. Comprehension/Praxis: Able to perform a three step command. Fund of Knowledge/memory: Reg 3/3, recall 0/3, 1/3 with category clue. 1/3 on second trial with same words. Language: Fluent and articulate without evidence of aphasia or dysarthria. Thought Content: Normal. Insight/Judgement: Normal. Cranial Nerves: Pupils equally round and reactive to light. Visual douglass full to confrontation. Gaze conjugate, EOMI. Sensation intact and symmetric to light touch. Facial strength is full and symmetric. Palate elevates symmetrically. Normal shrug bilaterally. Tongue protrudes midline Motor: Normal tone in all groups. No drift. Power is 5/5 throughout proximal and distal muscles. Sensation: Sensation is intact to temp, vibratory sense. Deep tendon reflexes: Normoactive throughout. Plantar responses are flexor bilaterally. Coordination: Finger to nose, heel to devine and rapid alternating movements are intact. Gait: Normal tander Eyes: non icteric, Mouth: moist mucus membranes Skin: no visible rash - Patient Data Lab Results Last 24 hrs: Laboratory Results - last 24 hr 07/12/19 07/12/19 07/12/19 Range/Units 06:08 06:08 06:24 WBC 4.21 (4.0-11.0) K/uL RBC 4.68 (4.30-5.90) M/uL Hgb 14.7 (12.0-16.0) g/dL Hct 42.9 (36.0-46.0) % MCV 91.7 (80.0-98.0) fL MCH 31.4 (27.0-32.0) pg MCHC 34.3 (31.0-37.0) g/dL RDW Std Deviation 47.8 (28.0-62.0) fl RDW Coeff of Cat 14 (11.0-15.0) % Plt Count 192 (150-400) K/uL MPV 9.30 (7.40-12.00) fL Neut % (Auto) 56.3 (48.0-80.0) % Lymph % (Auto) 26.6 (16.0-40.0) % [place] % (Auto) 12.8 (0.0-15.0) % Eos % (Auto) 3.1 (0.0-7.0) % Baso % (Auto) 1.2 (0.0-1.5) % Neut # (Auto) 2.4 (1.4-5.7) K/uL Lymph # (Auto) 1.1 (0.6-2.4) K/uL [place] # (Auto) 0.5 (0.0-0.8) K/uL Eos # (Auto) 0.1 (0.0-0.7) K/uL Baso # (Auto) 0.1 (0.0-0.1) K/uL Nucleated RBC % 0.0 /100WBC Nucleated RBCs # 0 K/uL Sodium 145 (136-145) mmol/L Potassium 3.5 (3.5-5.1) mmol/L Chloride 106 (98-107) mmol/L Carbon Dioxide 29.1 (21.0-32.0) mmol/L BUN 16 (7.0-18.0) mg/dL Creatinine 0.8 (0.6-1.0) mg/dL Est Cr Clr Drug Dosing 67.38 mL/min Estimated GFR (MDRD) > 60.0 ml/min Glucose 119 H (74-106) mg/dL Calcium 9.1 (8.5-10.1) mg/dL Total Bilirubin 1.4 H (0.2-1.0) mg/dL AST 16 (15-37) IU/L ALT 29 (14-63) IU/L Alkaline Phosphatase 122 H (46-116) U/L Total Protein 6.6 (6.4-8.2) g/dL Albumin 3.7 (3.4-5.0) g/dL Globulin 2.9 (2.6-4.0) g/dL Albumin/Globulin Ratio 1.3 (0.9-1.6) Urine Color YELLOW Urine Appearance CLEAR Urine pH 6.0 (5.0-8.0) Ur Specific [place] 1.020 (1.001-1.035) Urine Protein NEGATIVE (NEGATIVE) mg/dL Urine Glucose (UA) NEGATIVE (NEGATIVE) mg/dL Urine Ketones NEGATIVE (NEGATIVE) mg/dL Urine Occult Blood NEGATIVE (NEGATIVE) Urine Nitrite NEGATIVE (NEGATIVE) Urine Bilirubin NEGATIVE (NEGATIVE) Urine Urobilinogen 0.2 (<2.0) EU/dL Ur Leukocyte Esterase NEGATIVE (NEGATIVE) Urine RBC 0-1 (0-2/HPF) Urine WBC 0-1 (0-5/HPF) Ur Epithelial Cells RARE (NONE-FEW) Urine Bacteria RARE (NEGATIVE) Urine Opiates Screen (NEGATIVE) Ur Oxycodone Screen (NEGATIVE) Urine Methadone Screen (NEGATIVE) Ur Barbiturates Screen (NEGATIVE) Ur Phencyclidine Scrn (NEGATIVE) Ur Amphetamine Screen (NEGATIVE) U Methamphetamines Scrn (NEGATIVE) U Benzodiazepines Scrn (NEGATIVE) U Cocaine Metab Screen (NEGATIVE) U Marijuana (THC) Screen (NEGATIVE) Ethyl Alcohol <3 mg/dL 07/12/19 Range/Units 06:24 WBC (4.0-11.0) K/uL RBC (4.30-5.90) M/uL Hgb (12.0-16.0) g/dL Hct (36.0-46.0) % MCV (80.0-98.0) fL MCH (27.0-32.0) pg MCHC (31.0-37.0) g/dL RDW Std Deviation (28.0-62.0) fl RDW Coeff of Cat (11.0-15.0) % Plt Count (150-400) K/uL MPV (7.40-12.00) fL Neut % (Auto) (48.0-80.0) % Lymph % (Auto) (16.0-40.0) % [place] % (Auto) (0.0-15.0) % Eos % (Auto) (0.0-7.0) % Baso % (Auto) (0.0-1.5) % Neut # (Auto) (1.4-5.7) K/uL Lymph # (Auto) (0.6-2.4) K/uL [place] # (Auto) (0.0-0.8) K/uL Eos # (Auto) (0.0-0.7) K/uL Baso # (Auto) (0.0-0.1) K/uL Nucleated RBC % /100WBC Nucleated RBCs # K/uL Sodium (136-145) mmol/L Potassium (3.5-5.1) mmol/L Chloride (98-107) mmol/L Carbon Dioxide (21.0-32.0) mmol/L BUN (7.0-18.0) mg/dL Creatinine (0.6-1.0) mg/dL Est Cr Clr Drug Dosing mL/min Estimated GFR (MDRD) ml/min Glucose (74-106) mg/dL Calcium (8.5-10.1) mg/dL Total Bilirubin (0.2-1.0) mg/dL AST (15-37) IU/L ALT (14-63) IU/L Alkaline Phosphatase (46-116) U/L Total Protein (6.4-8.2) g/dL Albumin (3.4-5.0) g/dL Globulin (2.6-4.0) g/dL Albumin/Globulin Ratio (0.9-1.6) Urine Color Urine Appearance Urine pH (5.0-8.0) Ur Specific [place] (1.001-1.035) Urine Protein (NEGATIVE) mg/dL Urine Glucose (UA) (NEGATIVE) mg/dL Urine Ketones (NEGATIVE) mg/dL Urine Occult Blood (NEGATIVE) Urine Nitrite (NEGATIVE) Urine Bilirubin (NEGATIVE) Urine Urobilinogen (<2.0) EU/dL Ur Leukocyte Esterase (NEGATIVE) Urine RBC (0-2/HPF) Urine WBC (0-5/HPF) Ur Epithelial Cells (NONE-FEW) Urine Bacteria (NEGATIVE) Urine Opiates Screen NEGATIVE (NEGATIVE) Ur Oxycodone Screen NEGATIVE (NEGATIVE) Urine Methadone Screen NEGATIVE (NEGATIVE) Ur Barbiturates Screen NEGATIVE (NEGATIVE) Ur Phencyclidine Scrn NEGATIVE (NEGATIVE) Ur Amphetamine Screen NEGATIVE (NEGATIVE) U Methamphetamines Scrn NEGATIVE (NEGATIVE) U Benzodiazepines Scrn NEGATIVE (NEGATIVE) U Cocaine Metab Screen NEGATIVE (NEGATIVE) U Marijuana (THC) Screen NEGATIVE (NEGATIVE) Ethyl Alcohol mg/dL Result Diagrams: 07/12/19 06:08 07/12/19 06:08 [place] Results Last 24 hrs: CT head normal MRI brain -punctate T2 hyperintense foci likely minimal small vessels changes, o /w normal. MRI negative CBC, CMP, UA, Utox, ETOH normal/negative Sepsis Event Note - Evaluation Sepsis Screening Result: No Definite Risk - Focused Exam Vital Signs: Vital Signs Temp Pulse Resp BP Pulse Ox 07/12/19 11:30 36.3 C 89 18 124/73 93 L 07/12/19 11:07 82 109/65 95 07/12/19 09:33 85 14 136/67 96 07/12/19 09:05 82 16 124/69 97 07/12/19 06:46 36.0 C L 86 16 133/62 98 07/12/19 06:32 35.9 C L 78 18 138/75 97 07/12/19 06:03 35.7 C L 91 16 168/82 H 93 L Date Exam was Performed: 07/12/19 Time Exam was Performed: 12:45 Consult PN Assessment/Plan Procedures: Procedures ASSAY OF CREATININE (04/15/19) ASSAY OF FREE THYROXINE (10/22/18) ASSAY OF GGT (10/22/18) ASSAY OF TROPONIN QUANT (12/25/17) ASSAY OF UREA NITROGEN (04/15/19) ASSAY THYROID STIM HORMONE (10/22/18) COLONOSCOPY AND BIOPSY (05/07/19) COMPLETE CBC W/AUTO DIFF WBC (10/22/18) COMPREHEN METABOLIC PANEL (10/22/18) CT ABD & PELV W/CONTRAST (04/17/19) CT ABD & PELVIS W/O CONTRAST (11/09/15) CULTURE AEROBIC IDENTIFY (08/18/14) DIAGNOSTIC COLONOSCOPY (01/15/16) EMERGENCY DEPT VISIT (11/09/15) EXTREMITY STUDY (12/25/14) GLYCOSYLATED HEMOGLOBIN TEST (10/22/18) INFLUENZA ASSAY W/OPTIC (07/03/15) KNEE ARTHROSCOPY/SURGERY (06/03/15) LACTOFERRIN FECAL (QUAL) (08/26/14) LIPID PANEL (10/22/18) MANUAL THERAPY 1/> REGIONS (05/06/15) METABOLIC PANEL TOTAL CA (11/25/16) MICROBE SUSCEPTIBLE [place] (08/18/14) MRI JNT OF LWR EXTRE W/O DYE (05/01/15) OCCULT BLD FECES 1-3 TESTS (08/26/14) PT EVALUATION (05/06/15) RBC SED RATE AUTOMATED (04/27/15) REMOVAL OF FOOT LESION (03/08/17) RHEUMATOID FACTOR TEST QUAL (10/22/18) ROUTINE VENIPUNCTURE (04/15/19) COLLEEN VIPER VENOM DILUTED (10/22/18) STOOL CULTR AEROBIC BACT EA (08/26/14) THERAPEUTIC EXERCISES (05/06/15) THROMBOPLASTIN TIME PARTIAL (10/22/18) TISSUE EXAM BY PATHOLOGIST (12/12/16) URINALYSIS AUTO W/SCOPE (11/09/15) URINE BACTERIA CULTURE (08/18/14) VASOPNEUMATIC DEVICE THERAPY (05/06/15) VITAMIN B-12 (03/14/16) VITAMIN D 25 HYDROXY (10/22/18) X-RAY EXAM KNEE 4 OR MORE (04/27/15) X-RAY EXAM L-S SPINE 2/3 VWS (06/04/18) X-RAY EXAM OF FOOT (12/26/16) X-RAY EXAM OF HAND (11/06/18) X-RAY EXAM OF HEEL (03/07/18) X-RAY EXAM OF HIP (02/27/14) X-RAY EXAM OF TOE(S) (02/27/14) (1) Transient global amnesia SNOMED Code(s): 304092753 Code(s): G45.4 - TRANSIENT GLOBAL AMNESIA Current Visit: Yes Assessment:: Clinical picture most consistent with transient global amnesia, less likely seizure. Diagnosis and prognosis reviewed with her and her . Discharge tomorrow if no worsening/new symptoms Problem List Initiated/Reviewed/Updated: Yes
[2019-07-12] MEDS ORDERED: Polyethylene Glycol 3350 Powder 17 GM Packet PO PRN (12:52)
[2019-07-12] MEDS ORDERED: Temazepam 15 MG Cap PO PRN (12:52)
[2019-07-12] MEDS ORDERED: Ondansetron 4 MG Tab.DIS PO PRN (12:52)
[2019-07-12] MEDS ORDERED: Docusate Sodium 100 MG Cap PO PRN (12:52)
[2019-07-12] MEDS ORDERED: Ondansetron 4 MG/2 ML SDV IVPUSH PRN (12:52)
[2019-07-12] MEDS ORDERED: Ibuprofen 800 MG Tab PO PRN (12:52)
[2019-07-12] MEDS ORDERED: Acetaminophen 325 MG Tab PO PRN (12:52)
[2019-07-12] MEDS ORDERED: LORazepam 1 MG Tab PO PRN (12:55)
[2019-07-12] MEDS ORDERED: Furosemide 40 MG Tab PO PRN (12:55)
[2019-07-12] MEDS ORDERED: Azelastine/Fluticasone [Dymista Nasal Spray] 1 SPRAY NASBOTH PRN (12:55)
--- NOTE | 2019-07-12 12:57 | PCM.HP.2 ---
<Jake Wilkes - Last Filed: 07/14/19 15:27> H&P History of Present Illness - General Date of Service: 07/12/19 Admit Problem/Dx: Admission Diagnosis/Problem Admission Diagnosis/Problem Amnesia - History of Present Illness Initial Comments - Free Text/Narative: 64 y/o female who presented to the ER complaining of confusion. Patient does to remember the time frame from home and work. She states that she does not remember saying hi to people at work that she knows. Denies any history of CVA , CAD. No seizures. States she was taking a supplement for the past couple of months to help with weight loss and she recent quit taking that supplement. Denies any headaches, change in vision, syncope. No palpitations. She does endorse being sick a couple of weeks ago but now resolved. MRI was unremarkable. - Related Data Allergies/Adverse Reactions: Allergies Allergy/AdvReac Type Severity Reaction Status Date / Time sulfamethoxazole Allergy Mouth Sores Verified 07/12/19 11:42 [From Bactrim] trimethoprim [From Bactrim] Allergy Mouth Sores Verified 07/12/19 11:42 Home Medications: Home Meds Furosemide [Lasix] 40 mg PO DAILY PRN 06/01/15 [History] Potassium Chloride 20 meq PO DAILY PRN 06/01/15 [History] Azelastine/Fluticasone [Dymista Nasal [place]] 1 spray NASBOTH ASDIRECTED PRN 04/09 [History] LORazepam [Ativan] 0.5 - 1 tab PO ASDIRECTED PRN 05/01/19 [History] Past Medical History HEENT History: Reports: Allergic Rhinitis, Impaired Vision, Other (See Below) Other HEENT History: wears glasses Cardiovascular History: Reports: None Respiratory History: Reports: None Gastrointestinal History: Reports: Colon Polyp, Diverticulosis Other Gastrointestinal History: diverticulosis,h/o C.Diff,occasional heart burn , hx diverticulitis Genitourinary History: Reports: Renal Calculus [employer] History: Reports: Musculoskeletal History: Reports: Back Pain, Chronic, Fracture Other Musculoskeletal History: hx: fracturing a toe, ganglion cyst left foot Neurological History: Reports: Migraines Psychiatric History: Reports: None Endocrine/Metabolic History: Reports: None Hematologic History: Reports: None Immunologic History: Reports: None Oncologic (Cancer) History: Reports: None Dermatologic History: Reports: None - Infectious Disease History Infectious Disease History: Reports: C-Difficile, Chicken Pox, Shingles - Past Surgical History Head Surgeries/Procedures: Reports: None HEENT Surgical History: Reports: None Cardiovascular Surgical History: Reports: None Respiratory Surgical History: Reports: None GI Surgical History: Reports: Cholecystectomy, Colonoscopy Other GI Surgeries/Procedures: Lap [place] Female Surgical History: Reports: Hysterectomy Endocrine Surgical History: Reports: None Neurological Surgical History: Reports: None Musculoskeletal Surgical History: Reports: Arthroscopic Knee, Other (See Below) Other Musculoskeletal Surgeries/Procedures:: knee arthroscopy x3 (right x2, left x1) Oncologic Surgical History: Reports: None Dermatological Surgical History: Reports: Skin Biopsy Social & Family History - Family History Family Medical History: Noncontributory Cardiac: Reports: Hypertension, ID Other Neurological Family History: Father had a stroke Endocrine/Metabolic: Reports: Diabetes, type II Oncologic: Reports: Non-Hodgkin's Lymphoma, Prostate - Tobacco Use Smoking Status *Q: Former Smoker Years of Tobacco use: 15 Packs/Tins Daily: 1 Used Tobacco, but Quit: Yes Month/Year Tobacco Last Used: 1984 - Caffeine Use Caffeine Use: Reports: Coffee Caffeine Use Comment: 1 Cup/day - Recreational Drug Use Recreational Drug Use: No H&P Review of Systems - Review of Systems: Review Of Systems: Comprehensive ROS is negative, except as noted in HPI. Exam - Exam Exam: See Below - Vital Signs Vital Signs: Last Vital Signs Temp 36.3 C 07/12/19 11:30 Pulse 89 07/12/19 11:30 Resp 18 07/12/19 11:30 BP 124/73 07/12/19 11:30 Pulse Ox 93 L 07/12/19 11:30 Weight: 79.8 kg - Exam General: Alert, Oriented, Cooperative HEENT: Conjunctiva Clear, Mucosa Moist & [place] Lungs: Clear to Auscultation, Normal Respiratory Effort. No: Crackles, Wheezing Cardiovascular: Regular Rate, Regular Rhythm GI/Abdominal Exam: Normal Bowel Sounds, Soft, Non-Tender, No Distention Extremities: Normal Inspection, No Pedal Edema Skin: Warm, Dry Neuro Extensive - Mental Status: Alert, Oriented x3 - Patient Data Lab Results Last 24 hrs: Laboratory Results - last 24 hr 07/12/19 07/12/19 07/12/19 Range/Units 06:08 06:08 06:24 WBC 4.21 (4.0-11.0) K/uL RBC 4.68 (4.30-5.90) M/uL Hgb 14.7 (12.0-16.0) g/dL Hct 42.9 (36.0-46.0) % MCV 91.7 (80.0-98.0) fL MCH 31.4 (27.0-32.0) pg MCHC 34.3 (31.0-37.0) g/dL RDW Std Deviation 47.8 (28.0-62.0) fl RDW Coeff of Cat 14 (11.0-15.0) % Plt Count 192 (150-400) K/uL MPV 9.30 (7.40-12.00) fL Neut % (Auto) 56.3 (48.0-80.0) % Lymph % (Auto) 26.6 (16.0-40.0) % [place] % (Auto) 12.8 (0.0-15.0) % Eos % (Auto) 3.1 (0.0-7.0) % Baso % (Auto) 1.2 (0.0-1.5) % Neut # (Auto) 2.4 (1.4-5.7) K/uL Lymph # (Auto) 1.1 (0.6-2.4) K/uL [place] # (Auto) 0.5 (0.0-0.8) K/uL Eos # (Auto) 0.1 (0.0-0.7) K/uL Baso # (Auto) 0.1 (0.0-0.1) K/uL Nucleated RBC % 0.0 /100WBC Nucleated RBCs # 0 K/uL Sodium 145 (136-145) mmol/L Potassium 3.5 (3.5-5.1) mmol/L Chloride 106 (98-107) mmol/L Carbon Dioxide 29.1 (21.0-32.0) mmol/L BUN 16 (7.0-18.0) mg/dL Creatinine 0.8 (0.6-1.0) mg/dL Est Cr Clr Drug Dosing 67.38 mL/min Estimated GFR (MDRD) > 60.0 ml/min Glucose 119 H (74-106) mg/dL Calcium 9.1 (8.5-10.1) mg/dL Total Bilirubin 1.4 H (0.2-1.0) mg/dL AST 16 (15-37) IU/L ALT 29 (14-63) IU/L Alkaline Phosphatase 122 H (46-116) U/L Total Protein 6.6 (6.4-8.2) g/dL Albumin 3.7 (3.4-5.0) g/dL Globulin 2.9 (2.6-4.0) g/dL Albumin/Globulin Ratio 1.3 (0.9-1.6) Urine Color YELLOW Urine Appearance CLEAR Urine pH 6.0 (5.0-8.0) Ur Specific [place] 1.020 (1.001-1.035) Urine Protein NEGATIVE (NEGATIVE) mg/dL Urine Glucose (UA) NEGATIVE (NEGATIVE) mg/dL Urine Ketones NEGATIVE (NEGATIVE) mg/dL Urine Occult Blood NEGATIVE (NEGATIVE) Urine Nitrite NEGATIVE (NEGATIVE) Urine Bilirubin NEGATIVE (NEGATIVE) Urine Urobilinogen 0.2 (<2.0) EU/dL Ur Leukocyte Esterase NEGATIVE (NEGATIVE) Urine RBC 0-1 (0-2/HPF) Urine WBC 0-1 (0-5/HPF) Ur Epithelial Cells RARE (NONE-FEW) Urine Bacteria RARE (NEGATIVE) Urine Opiates Screen (NEGATIVE) Ur Oxycodone Screen (NEGATIVE) Urine Methadone Screen (NEGATIVE) Ur Barbiturates Screen (NEGATIVE) Ur Phencyclidine Scrn (NEGATIVE) Ur Amphetamine Screen (NEGATIVE) U Methamphetamines Scrn (NEGATIVE) U Benzodiazepines Scrn (NEGATIVE) U Cocaine Metab Screen (NEGATIVE) U Marijuana (THC) Screen (NEGATIVE) Ethyl Alcohol <3 mg/dL 07/12/19 Range/Units 06:24 WBC (4.0-11.0) K/uL RBC (4.30-5.90) M/uL Hgb (12.0-16.0) g/dL Hct (36.0-46.0) % MCV (80.0-98.0) fL MCH (27.0-32.0) pg MCHC (31.0-37.0) g/dL RDW Std Deviation (28.0-62.0) fl RDW Coeff of Cat (11.0-15.0) % Plt Count (150-400) K/uL MPV (7.40-12.00) fL Neut % (Auto) (48.0-80.0) % Lymph % (Auto) (16.0-40.0) % [place] % (Auto) (0.0-15.0) % Eos % (Auto) (0.0-7.0) % Baso % (Auto) (0.0-1.5) % Neut # (Auto) (1.4-5.7) K/uL Lymph # (Auto) (0.6-2.4) K/uL [place] # (Auto) (0.0-0.8) K/uL Eos # (Auto) (0.0-0.7) K/uL Baso # (Auto) (0.0-0.1) K/uL Nucleated RBC % /100WBC Nucleated RBCs # K/uL Sodium (136-145) mmol/L Potassium (3.5-5.1) mmol/L Chloride (98-107) mmol/L Carbon Dioxide (21.0-32.0) mmol/L BUN (7.0-18.0) mg/dL Creatinine (0.6-1.0) mg/dL Est Cr Clr Drug Dosing mL/min Estimated GFR (MDRD) ml/min Glucose (74-106) mg/dL Calcium (8.5-10.1) mg/dL Total Bilirubin (0.2-1.0) mg/dL AST (15-37) IU/L ALT (14-63) IU/L Alkaline Phosphatase (46-116) U/L Total Protein (6.4-8.2) g/dL Albumin (3.4-5.0) g/dL Globulin (2.6-4.0) g/dL Albumin/Globulin Ratio (0.9-1.6) Urine Color Urine Appearance Urine pH (5.0-8.0) Ur Specific [place] (1.001-1.035) Urine Protein (NEGATIVE) mg/dL Urine Glucose (UA) (NEGATIVE) mg/dL Urine Ketones (NEGATIVE) mg/dL Urine Occult Blood (NEGATIVE) Urine Nitrite (NEGATIVE) Urine Bilirubin (NEGATIVE) Urine Urobilinogen (<2.0) EU/dL Ur Leukocyte Esterase (NEGATIVE) Urine RBC (0-2/HPF) Urine WBC (0-5/HPF) Ur Epithelial Cells (NONE-FEW) Urine Bacteria (NEGATIVE) Urine Opiates Screen NEGATIVE (NEGATIVE) Ur Oxycodone Screen NEGATIVE (NEGATIVE) Urine Methadone Screen NEGATIVE (NEGATIVE) Ur Barbiturates Screen NEGATIVE (NEGATIVE) Ur Phencyclidine Scrn NEGATIVE (NEGATIVE) Ur Amphetamine Screen NEGATIVE (NEGATIVE) U Methamphetamines Scrn NEGATIVE (NEGATIVE) U Benzodiazepines Scrn NEGATIVE (NEGATIVE) U Cocaine Metab Screen NEGATIVE (NEGATIVE) U Marijuana (THC) Screen NEGATIVE (NEGATIVE) Ethyl Alcohol mg/dL Result Diagrams: 07/12/19 06:08 07/13/19 06:18 Sepsis Event Note - Evaluation Sepsis Screening Result: No Definite Risk - Focused Exam Vital Signs: Vital Signs Temp Pulse Resp BP Pulse Ox 07/12/19 11:30 36.3 C 89 18 124/73 93 L 07/12/19 11:07 82 109/65 95 07/12/19 09:33 85 14 136/67 96 07/12/19 09:05 82 16 124/69 97 07/12/19 06:46 36.0 C L 86 16 133/62 98 07/12/19 06:32 35.9 C L 78 18 138/75 97 07/12/19 06:03 35.7 C L 91 16 168/82 H 93 L Date Exam was Performed: 07/14/19 Time Exam was Performed: 15:27 Problem List Initiated/Reviewed/Updated: Yes Orders Last 24hrs: Active Orders 24 hr Category Date Time Status Admission Status [Patient Status] [ADT] Stat ADT 07/12/19 10:56 Active Intake and Output [RC] QSHIFT Care 07/12/19 12:53 Ordered Oxygen Therapy [RC] PRN Care 07/12/19 12:52 Ordered Telemetry Monitoring [Cardiac Monitoring] [RC] . Care 07/12/19 12:55 Ordered DIRECTED Up ad Ronna [RC] ASDIRECTED Care 07/12/19 12:52 Ordered VTE/DVT Education [RC] PER UNIT ROUTINE Care 07/12/19 12:52 Ordered Vital Signs [RC] Q4H Care 07/12/19 12:52 Ordered Regular Diet [DIET] Diet 07/12/19 Lunch Ordered Acetaminophen [Tylenol] Med 07/12/19 12:52 Ordered 650 mg PO Q4H PRN Azelastine/Fluticasone [Dymista Nasal [place]] Med 07/12/19 12:55 Ordered 1 spray NASBOTH ASDIRECTED PRN Docusate Sodium [Colace] Med 07/12/19 12:52 Ordered 100 mg PO BID PRN Enoxaparin [Lovenox] Med 07/12/19 13:00 Ordered 40 mg SUBCUT Q24H Furosemide [Lasix] Med 07/12/19 12:55 Ordered 40 mg PO DAILY PRN Ibuprofen [Motrin] Med 07/12/19 12:52 Ordered 800 mg PO Q6H PRN LORazepam [Ativan] Med 07/12/19 12:55 Ordered 1 mg PO Q8H PRN Ondansetron [Zofran ODT] Med 07/12/19 12:52 Ordered 4 mg PO Q4H PRN Ondansetron [Zofran] Med 07/12/19 12:52 Ordered 4 mg IVPUSH Q4H PRN Sodium Chloride 0.9% [Normal Saline] Med 07/12/19 06:05 Active 10 ml IV ASDIRECTED PRN Sodium Chloride 0.9% [Saline Flush] Med 07/12/19 06:05 Active 10 ml FLUSH ASDIRECTED PRN Sodium Chloride 0.9% [Saline Flush] Med 07/12/19 06:05 Active 2.5 ml FLUSH ASDIRECTED PRN Temazepam [Restoril] Med 07/12/19 12:52 Ordered 15 mg PO BEDTIME PRN polyethylene glycoL 3350 [MiraLAX] Med 07/12/19 12:52 Ordered 17 gm PO DAILY PRN Peripheral IV Insertion Adult [OM.PC] Stat Oth 07/12/19 06:05 Ordered Resuscitation Status Routine Resus Stat 07/12/19 12:52 Ordered Medication Orders Acetaminophen (Tylenol) 650 mg PO Q4H PRN PRN Reason: Pain (Mild 1-3)/fever Docusate Sodium (Colace) 100 mg PO BID PRN PRN Reason: Constipation Enoxaparin Sodium (Lovenox) 40 mg SUBCUT Q24H LUPE Furosemide (Lasix) 40 mg PO DAILY PRN PRN Reason: Edema Ibuprofen (Motrin) 800 mg PO Q6H PRN PRN Reason: Pain (mild 1-3) Lorazepam (Ativan) 1 mg PO Q8H PRN PRN Reason: Anxiety Non-Formulary Medication (Azelastine/Fluticasone [Dymista Nasal [place]]) 1 spray NASBOTH ASDIRECTED PRN PRN Reason: sinus congestion Ondansetron HCl (Zofran Odt) 4 mg PO Q4H PRN PRN Reason: nausea, able to take PO Ondansetron HCl (Zofran) 4 mg IVPUSH Q4H PRN PRN Reason: Nausea Polyethylene Glycol (Miralax) 17 gm PO DAILY PRN PRN Reason: Constipation Sodium Chloride (Saline Flush) 10 ml FLUSH ASDIRECTED PRN PRN Reason: Keep Vein Open Last Admin: 07/12/19 09:31 Dose: 10 ml Sodium Chloride (Saline Flush) 2.5 ml FLUSH ASDIRECTED PRN PRN Reason: Keep Vein Open Last Admin: 07/12/19 09:31 Dose: 2.5 ml Sodium Chloride (Normal Saline) 10 ml IV ASDIRECTED PRN PRN Reason: IV Use Last Admin: 07/12/19 09:31 Dose: 10 ml Temazepam (Restoril) 15 mg PO BEDTIME PRN PRN Reason: Sleep Assessment/Plan Comment:: A: 1. Transient global amnesia P: 1. Dr. Jaime was consulted and evaluated the patient. Presentation consistent with transient global amnesia. <Jorge Maradiaga - Last Filed: 07/23/19 11:29> H&P History of Present Illness - General Admit Problem/Dx: Admission Diagnosis/Problem Admission Diagnosis/Problem Amnesia Exam - Vital Signs Vital Signs: Last Vital Signs Temp 36.7 C 07/13/19 11:00 Pulse 75 07/13/19 11:00 Resp 16 07/13/19 07:20 BP 121/66 07/13/19 11:00 Pulse Ox 94 L 07/13/19 11:00 - Patient Data Result Diagrams: 07/12/19 06:08 07/13/19 06:18 Assessment/Plan Comment:: I have seen and examined the patient with the resident. I have discussed the findings and treatment plan with the resident. I agree with the assessment and plan as outlined in the following note.
[2019-07-12] MEDS ORDERED: Enoxaparin 40 MG/0.4 ML Syringe SUBCUT SCH (13:00)
[2019-07-13 07:11] LABS: BLOOD UREA NITROGEN,BUN 14 mg/dL (7.0-18.0); CARBON DIOXIDE,CO2 29.7 mmol/L (21.0-32.0); CHLORIDE,CL 111 mmol/L (98-107); GLUCOSE RANDOM 91 mg/dL (74-106); POTASSIUM,K 4.1 mmol/L (3.5-5.1); SODIUM,NA 147 mmol/L (136-145)
--- NOTE | 2019-07-13 09:16 | PCM.CONSN ---
- General Info Date of Service: 07/13/19 Admission Dx/Problem (Free Text): Admission Diagnosis/Problem Admission Diagnosis/Problem Amnesia Subjective Update: She feels nearly 100%. She recalls some of our conversation yesterday. She says her sent her transient global amnesia info from [employer] website. - Patient Data Vitals - Most Recent: Last Vital Signs Temp 36.6 C 07/13/19 07:20 Pulse 84 07/13/19 07:20 Resp 16 07/13/19 07:20 BP 119/58 L 07/13/19 07:20 Pulse Ox 94 L 07/13/19 07:20 Weight - Most Recent: 79.8 kg I&O - Last 24 Hours: Intake & Output 07/12/19 07/13/19 07/13/19 22:59 06:59 14:59 Intake Total 300 750 Output Total 300 500 Balance 0 250 Lab Results Last 24 Hours: Laboratory Results - last 24 hr 07/13/19 Range/Units 06:18 Sodium 147 H (136-145) mmol/L Potassium 4.1 (3.5-5.1) mmol/L Chloride 111 H (98-107) mmol/L Carbon Dioxide 29.7 (21.0-32.0) mmol/L BUN 14 (7.0-18.0) mg/dL Creatinine 0.6 (0.6-1.0) mg/dL Est Cr Clr Drug Dosing 89.84 mL/min Estimated GFR (MDRD) > 60.0 ml/min Glucose 91 (74-106) mg/dL Calcium 8.8 (8.5-10.1) mg/dL Total Bilirubin 1.7 H (0.2-1.0) mg/dL AST 14 L (15-37) IU/L ALT 28 (14-63) IU/L Alkaline Phosphatase 102 (46-116) U/L Total Protein 6.2 L (6.4-8.2) g/dL Albumin 3.4 (3.4-5.0) g/dL Globulin 2.8 (2.6-4.0) g/dL Albumin/Globulin Ratio 1.2 (0.9-1.6) Med Orders - Current: Current Medications Acetaminophen (Tylenol) 650 mg PO Q4H PRN PRN Reason: Pain (Mild 1-3)/fever Docusate Sodium (Colace) 100 mg PO BID PRN PRN Reason: Constipation Enoxaparin Sodium (Lovenox) 40 mg SUBCUT Q24H [facility] Last Admin: 07/12/19 13:37 Dose: 40 mg Furosemide (Lasix) 40 mg PO DAILY PRN PRN Reason: Edema Ibuprofen (Motrin) 800 mg PO Q6H PRN PRN Reason: Pain (mild 1-3) Lorazepam (Ativan) 1 mg PO Q8H PRN PRN Reason: Anxiety Ondansetron HCl (Zofran Odt) 4 mg PO Q4H PRN PRN Reason: nausea, able to take PO Ondansetron HCl (Zofran) 4 mg IVPUSH Q4H PRN PRN Reason: Nausea Azelastine/Fluticasone [Dymista Nasal [place]] 1 [place] 1 each NASBOTH ASDIRECTED PRN PRN Reason: sinus congestion Polyethylene Glycol (Miralax) 17 gm PO DAILY PRN PRN Reason: Constipation Sodium Chloride (Saline Flush) 10 ml FLUSH ASDIRECTED PRN PRN Reason: Keep Vein Open Last Admin: 07/12/19 09:31 Dose: 10 ml Sodium Chloride (Saline Flush) 2.5 ml FLUSH ASDIRECTED PRN PRN Reason: Keep Vein Open Last Admin: 07/12/19 09:31 Dose: 2.5 ml Sodium Chloride (Normal Saline) 10 ml IV ASDIRECTED PRN PRN Reason: IV Use Last Admin: 07/12/19 09:31 Dose: 10 ml Temazepam (Restoril) 15 mg PO BEDTIME PRN PRN Reason: Sleep Discontinued Medications Gadobenate Dimeglumine (Multihance) 20 ml IVPUSH ONETIME STA Stop: 07/12/19 08:12 Last Admin: 07/12/19 08:29 Dose: 15 ml Lorazepam (Ativan) 0.5 mg IVPUSH ONETIME ONE Stop: 07/12/19 07:36 Last Admin: 07/12/19 07:41 Dose: 0.5 mg - Exam Physical Findings Comments:: Mental status: Alert, oriented X 3. Spells world back wards. Reg 3/3, recall 1 /3, 3/3 with category clue Sepsis Event Note - Evaluation Sepsis Screening Result: No Definite Risk - Focused Exam Vital Signs: Vital Signs Temp Pulse Resp BP Pulse Ox 07/13/19 07:20 36.6 C 84 16 119/58 L 94 L 07/13/19 04:00 36.6 C 76 18 123/59 L 94 L 07/13/19 00:00 36.9 C 87 18 116/59 L 94 L Date Exam was Performed: 07/13/19 Time Exam was Performed: 09:12 Consult PN Assessment/Plan Procedures: Procedures ASSAY OF CREATININE (04/15/19) ASSAY OF FREE THYROXINE (10/22/18) ASSAY OF GGT (10/22/18) ASSAY OF TROPONIN QUANT (12/25/17) ASSAY OF UREA NITROGEN (04/15/19) ASSAY THYROID STIM HORMONE (10/22/18) COLONOSCOPY AND BIOPSY (05/07/19) COMPLETE CBC W/AUTO DIFF WBC (10/22/18) COMPREHEN METABOLIC PANEL (10/22/18) CT ABD & PELV W/CONTRAST (04/17/19) CT ABD & PELVIS W/O CONTRAST (11/09/15) CULTURE AEROBIC IDENTIFY (08/18/14) DIAGNOSTIC COLONOSCOPY (01/15/16) EMERGENCY DEPT VISIT (11/09/15) EXTREMITY STUDY (12/25/14) GLYCOSYLATED HEMOGLOBIN TEST (10/22/18) INFLUENZA ASSAY W/OPTIC (07/03/15) KNEE ARTHROSCOPY/SURGERY (06/03/15) LACTOFERRIN FECAL (QUAL) (08/26/14) LIPID PANEL (10/22/18) MANUAL THERAPY 1/> REGIONS (05/06/15) METABOLIC PANEL TOTAL CA (11/25/16) MICROBE SUSCEPTIBLE NADIRA (08/18/14) MRI JNT OF LWR EXTRE W/O DYE (05/01/15) OCCULT BLD FECES 1-3 TESTS (08/26/14) PT EVALUATION (05/06/15) RBC SED RATE AUTOMATED (04/27/15) REMOVAL OF FOOT LESION (03/08/17) RHEUMATOID FACTOR TEST QUAL (10/22/18) ROUTINE VENIPUNCTURE (04/15/19) COLLEEN VIPER VENOM DILUTED (10/22/18) STOOL CULTR AEROBIC BACT EA (08/26/14) THERAPEUTIC EXERCISES (05/06/15) THROMBOPLASTIN TIME PARTIAL (10/22/18) TISSUE EXAM BY PATHOLOGIST (12/12/16) URINALYSIS AUTO W/SCOPE (11/09/15) URINE BACTERIA CULTURE (08/18/14) VASOPNEUMATIC DEVICE THERAPY (05/06/15) VITAMIN B-12 (03/14/16) VITAMIN D 25 HYDROXY (10/22/18) X-RAY EXAM KNEE 4 OR MORE (04/27/15) X-RAY EXAM L-S SPINE 2/3 VWS (06/04/18) X-RAY EXAM OF FOOT (12/26/16) X-RAY EXAM OF HAND (11/06/18) X-RAY EXAM OF HEEL (03/07/18) X-RAY EXAM OF HIP (02/27/14) X-RAY EXAM OF TOE(S) (02/27/14) (1) Transient global amnesia SNOMED Code(s): 439637702 Code(s): G45.4 - TRANSIENT GLOBAL AMNESIA Current Visit: Yes Assessment:: Clinical picture most consistent with transient global amnesia, less likely seizure. Okay to discharge today from neurologic standpoint. She may need follow up labs given Na and bilirubin. Follow up neurology if symptoms recur. Problem List Initiated/Reviewed/Updated: Yes
[2019-07-13] MEDS ORDERED: Ibuprofen 400 MG Tab PO ONE (11:54)
[2019-07-13 12:16] VITALS: BP 121/66; PULSE 75
--- NOTE | 2019-07-13 12:34 | PCM.DCSUM1 ---
<Jake Wilkes - Last Filed: 07/14/19 15:28> Discharge Summary - Hospital Course Free Text/Narrative:: 64 y/o female who presented to the ER complaining of confusion. She was admitted for altered mental status. MRI Brain and MRA head and neck were unremarkable. No signs of ischemia, damage. Dr. Jaime, Neurology, was consulted who evaluated the patient and determined that her presentation was consistent with transient global amnesia. The patient did well during the hospitalization. Telemetry was negative for any arrhythmias. Her mentation, memory had return to baseline. She was discharged the following day with instructions to follow-up with her PCP and Neurology if symptoms returned. - Discharge Data Discharge Date: 07/13/19 Discharge Disposition: Home, Self-Care 01 Condition: Good - Referral to Home Health Primary Care Physician: Armani Mendiola MD - Patient Instructions Diet: Regular Diet as Tolerated Activity: As Tolerated Notify Provider of: Fever, Increased Pain, Swelling and Redness, Nausea and/or Vomiting - Discharge Plan Home Medications: Home Meds Furosemide [Lasix] 40 mg PO DAILY PRN 06/01/15 [History] Potassium Chloride 20 meq PO DAILY PRN 06/01/15 [History] Azelastine/Fluticasone [Dymista Nasal Jackson] 1 spray NASBOTH ASDIRECTED PRN 04/09 [History] LORazepam [Ativan] 0.5 - 1 tab PO ASDIRECTED PRN 05/01/19 [History] Patient Handouts: Transient Global Amnesia Referrals: Armani Mendiola MD [Primary Care Provider] - 07/25/19 2:00 pm - Discharge Summary/Plan Comment DC Time >30 min.: No - Patient Data Vitals - Most Recent: Last Vital Signs Temp 36.7 C 07/13/19 11:00 Pulse 75 07/13/19 11:00 Resp 16 07/13/19 07:20 BP 121/66 07/13/19 11:00 Pulse Ox 94 L 07/13/19 07:20 Weight - Most Recent: 79.8 kg I&O - Last 24 hours: Intake & Output 07/12/19 07/13/19 07/13/19 22:59 06:59 14:59 Intake Total 300 750 Output Total 300 500 Balance 0 250 Lab Results - Last 24 hrs: Laboratory Results - last 24 hr 07/13/19 Range/Units 06:18 Sodium 147 H (136-145) mmol/L Potassium 4.1 (3.5-5.1) mmol/L Chloride 111 H (98-107) mmol/L Carbon Dioxide 29.7 (21.0-32.0) mmol/L BUN 14 (7.0-18.0) mg/dL Creatinine 0.6 (0.6-1.0) mg/dL Est Cr Clr Drug Dosing 89.84 mL/min Estimated GFR (MDRD) > 60.0 ml/min Glucose 91 (74-106) mg/dL Calcium 8.8 (8.5-10.1) mg/dL Total Bilirubin 1.7 H (0.2-1.0) mg/dL AST 14 L (15-37) IU/L ALT 28 (14-63) IU/L Alkaline Phosphatase 102 (46-116) U/L Total Protein 6.2 L (6.4-8.2) g/dL Albumin 3.4 (3.4-5.0) g/dL Globulin 2.8 (2.6-4.0) g/dL Albumin/Globulin Ratio 1.2 (0.9-1.6) Med Orders - Current: Current Medications Acetaminophen (Tylenol) 650 mg PO Q4H PRN PRN Reason: Pain (Mild 1-3)/fever Last Admin: 07/13/19 11:05 Dose: 650 mg Docusate Sodium (Colace) 100 mg PO BID PRN PRN Reason: Constipation Enoxaparin Sodium (Lovenox) 40 mg SUBCUT Q24H LUPE Last Admin: 07/12/19 13:37 Dose: 40 mg Furosemide (Lasix) 40 mg PO DAILY PRN PRN Reason: Edema Ibuprofen (Motrin) 800 mg PO Q6H PRN PRN Reason: Pain (mild 1-3) Lorazepam (Ativan) 1 mg PO Q8H PRN PRN Reason: Anxiety Ondansetron HCl (Zofran Odt) 4 mg PO Q4H PRN PRN Reason: nausea, able to take PO Ondansetron HCl (Zofran) 4 mg IVPUSH Q4H PRN PRN Reason: Nausea Azelastine/Fluticasone [Dymista Nasal Jackson] 1 Jackson 1 each NASBOTH ASDIRECTED PRN PRN Reason: sinus congestion Polyethylene Glycol (Miralax) 17 gm PO DAILY PRN PRN Reason: Constipation Sodium Chloride (Saline Flush) 10 ml FLUSH ASDIRECTED PRN PRN Reason: Keep Vein Open Last Admin: 07/12/19 09:31 Dose: 10 ml Sodium Chloride (Saline Flush) 2.5 ml FLUSH ASDIRECTED PRN PRN Reason: Keep Vein Open Last Admin: 07/12/19 09:31 Dose: 2.5 ml Sodium Chloride (Normal Saline) 10 ml IV ASDIRECTED PRN PRN Reason: IV Use Last Admin: 07/12/19 09:31 Dose: 10 ml Temazepam (Restoril) 15 mg PO BEDTIME PRN PRN Reason: Sleep Discontinued Medications Gadobenate Dimeglumine (Multihance) 20 ml IVPUSH ONETIME STA Stop: 07/12/19 08:12 Last Admin: 07/12/19 08:29 Dose: 15 ml Ibuprofen (Motrin) 400 mg PO ONETIME ONE Stop: 07/13/19 11:55 Lorazepam (Ativan) 0.5 mg IVPUSH ONETIME ONE Stop: 07/12/19 07:36 Last Admin: 07/12/19 07:41 Dose: 0.5 mg <Jorge Maradiaga - Last Filed: 07/23/19 11:30> Discharge Summary - Hospital Course Free Text/Narrative:: I have seen and examined the patient with the resident. I have discussed the findings and treatment plan with the resident. I agree with the assessment and plan as outlined in the following note. - Referral to Home Health Primary Care Physician: Armani Mendiola MD - Patient Data Vitals - Most Recent: Last Vital Signs Temp 36.7 C 07/13/19 11:00 Pulse 75 07/13/19 11:00 Resp 16 07/13/19 07:20 BP 121/66 07/13/19 11:00 Pulse Ox 94 L 07/13/19 11:00 Med Orders - Current: Current Medications Discontinued Medications Acetaminophen (Tylenol) 650 mg PO Q4H PRN PRN Reason: Pain (Mild 1-3)/fever Last Admin: 07/13/19 11:05 Dose: 650 mg Docusate Sodium (Colace) 100 mg PO BID PRN PRN Reason: Constipation Enoxaparin Sodium (Lovenox) 40 mg SUBCUT Q24H LUPE Last Admin: 07/12/19 13:37 Dose: 40 mg Furosemide (Lasix) 40 mg PO DAILY PRN PRN Reason: Edema Gadobenate Dimeglumine (Multihance) 20 ml IVPUSH ONETIME STA Stop: 07/12/19 08:12 Last Admin: 07/12/19 08:29 Dose: 15 ml Ibuprofen (Motrin) 800 mg PO Q6H PRN PRN Reason: Pain (mild 1-3) Ibuprofen (Motrin) 400 mg PO ONETIME ONE Stop: 07/13/19 11:55 Last Admin: 07/13/19 12:56 Dose: 400 mg Lorazepam (Ativan) 0.5 mg IVPUSH ONETIME ONE Stop: 07/12/19 07:36 Last Admin: 07/12/19 07:41 Dose: 0.5 mg Lorazepam (Ativan) 1 mg PO Q8H PRN PRN Reason: Anxiety Ondansetron HCl (Zofran Odt) 4 mg PO Q4H PRN PRN Reason: nausea, able to take PO Ondansetron HCl (Zofran) 4 mg IVPUSH Q4H PRN PRN Reason: Nausea Azelastine/Fluticasone [Dymista Nasal Jackson] 1 Jackson 1 each NASBOTH ASDIRECTED PRN PRN Reason: sinus congestion Polyethylene Glycol (Miralax) 17 gm PO DAILY PRN PRN Reason: Constipation Sodium Chloride (Saline Flush) 10 ml FLUSH ASDIRECTED PRN PRN Reason: Keep Vein Open Last Admin: 07/12/19 09:31 Dose: 10 ml Sodium Chloride (Saline Flush) 2.5 ml FLUSH ASDIRECTED PRN PRN Reason: Keep Vein Open Last Admin: 07/12/19 09:31 Dose: 2.5 ml Sodium Chloride (Normal Saline) 10 ml IV ASDIRECTED PRN PRN Reason: IV Use Last Admin: 07/12/19 09:31 Dose: 10 ml Temazepam (Restoril) 15 mg PO BEDTIME PRN PRN Reason: Sleep
== END 2019-07-13 13:05 | disposition home or self-care (01) ==
LOC: MW.ED 05:59 → MW.MS 10:56
PROVIDERS: ADMIT Student in an Organized Health Care Education/Training Program; ATTEND Student in an Organized Health Care Education/Training Program
DX: R41.82 Altered mental status, unspecified (principal); Z87.891 Personal history of nicotine dependence; Z88.2 Allergy status to sulfonamides; Z88.1 Allergy status to other antibiotic agents; Z79.899 Other long term (current) drug therapy
CPT/HCPCS: 36415; 70450; 70544; 70553; 80053; 80061; 80305; 80307; 81001; 84443; 85025; 96372; 96374; 99285; A9270; A9577; G0378; J1650; J2060; J7050; 99284

== ENCOUNTER 2019-07-30 11:40 | Emergency (ER) | payer OTHER, BC ==
[2019-07-30] MEDS ORDERED: Ibuprofen 800 MG Tab PO ONE (12:31)
--- NOTE | 2019-07-30 13:45 | EDM.PDOC ---
ED HPI GENERAL MEDICAL PROBLEM - General Chief Complaint: General Stated Complaint: FELL Time Seen by Provider: 07/30/19 11:51 Source of Information: Reports: Patient History Limitations: Reports: No Limitations - History of Present Illness INITIAL COMMENTS - FREE TEXT/NARRATIVE: HISTORY AND PHYSICAL: History of present illness: Patient is a 64-year-old female who presents to the ED today with concern of neck injury that occurred after she fell just prior to arrival to the ED. Patient states she was on lunch break and walking with coworkers to a local restaurant nearby. Patient states she was distracted by a rabbit that she had seen. Patient states she turned to point out the rabbit to her coworker when she did not realize the sidewalk had dropped off. Patient states she tripped and fell and landed hitting her front side of her neck against a pot that is holding a plant. Patient states she did not hit her head or lose consciousness and was not dizzy prior to the fall. Patient states since then she has had pain with a little bit of swelling on the front side of her neck. Patient states she has not taken anything for her symptoms. Patient denies any other symptoms or concerns. Patient denies fever, chills, chest pain, shortness of breath, or cough. Denies headache, neck stiff ness, change in vision, syncope, or near syncope. Denies nausea, vomiting, abdominal pain, diarrhea, constipation, or dysuria. Has not noted any blood in urine or stool. Patient has been eating and drinking appropriately. Review of systems: As per history of present illness and below otherwise all systems reviewed and negative. Past medical history: As per history of present illness and as reviewed below otherwise noncontributory. Surgical history: As per history of present illness and as reviewed below otherwise noncontributory. Social history: See social history for further information Family history: As per history of present illness and as reviewed below otherwise noncontributory. Physical exam: General: Patient is alert, oriented, and in no acute distress. Patient sitting comfortably on exam table. HEENT: There is mild edema of the left sided anterior neck but patient with mild tenderness to palpation of this area. Otherwise, Atraumatic, normocephalic , pupils equal and reactive bilaterally, negative for conjunctival pallor or scleral icterus, mucous membranes moist, TMs normal bilaterally, throat clear, neck supple, nontender, trachea midline. No drooling or trismus noted. No meningeal signs. No hot potato voice noted. Lungs: Clear to auscultation, breath sounds equal bilaterally, chest nontender. Heart: S1S2, regular rate and rhythm without overt murmur Abdomen: Soft, nondistended, nontender. Negative for masses or hepatosplenomegaly. Negative for costovertebral tenderness. Pelvis: Stable nontender. Genitourinary: Deferred. Rectal: Deferred. Skin: Intact, warm, dry. No lesions or rashes noted. Extremities: No obvious deformity of the complete spine. No step-offs, crepitus , or point tenderness to palpation of the complete spine. Patient does have full range of motion of the complete spine without pain or difficulty. Otherwise, atraumatic, negative for cords or calf pain. Neurovascular unremarkable. Neuro: Awake, alert, oriented. Cranial nerves II through XII unremarkable. Cerebellum unremarkable. Motor and sensory unremarkable throughout. Exam nonfocal. Notes: Initially, patient was adamant about not receiving any CT imaging and had thorough discussions about risks versus benefits of this and expresses understanding. After x-ray was performed, patient began to develop a headache and states that she is "seeing floaters." Patient states she does have a history of migraine disorder in which this does feel like could be the potential onset of a migraine but states it is also unusual for her in that the floaters feel like its affecting her vision. Patient is now willing to undergo CT scan after XR has already been performed. Patient expresses resolution of symptoms today in the ED. The area of mention of the thyroid swelling on the CT scan is where patient has mild edema from injury. Did discuss this result with patient and the need to have this followed up. Admission for observation was offered to patient but she declines at this time. All risks versus benefits discussed with patient expresses understanding. Discussed importance for follow-up with primary care provider. Voices understanding and is agreeable to plan of care. Denies any further questions or concerns at this time. Diagnostics: Soft tissue neck XR, Head CT, soft tissue neck CT, CXR, CBC, CMP, UA, EKG, Trop Therapeutics: Ibuprofen (Initially given upon arrival and before change in symptoms), NS, Zofran, Ativan Prescription: None Impression: Soft tissue neck injury, anterior Headache, resolved Plan: 1. You can alternate ibuprofen and Tylenol as directed for pain and discomfort. 2. Follow-up with a primary care provider as discussed. Return to the ED as needed and as discussed. Definitive disposition and diagnosis as appropriate pending reevaluation and review of above. Throat Pain Score (Numeric/FACES): 8 - Related Data Allergies Allergy/AdvReac Type Severity Reaction Status Date / Time sulfamethoxazole Allergy Mouth Sores Verified 07/30/19 11:59 [From Bactrim] trimethoprim [From Bactrim] Allergy Mouth Sores Verified 07/30/19 11:59 Home Meds: Home Meds Furosemide [Lasix] 40 mg PO DAILY PRN 06/01/15 [History] Potassium Chloride 20 meq PO DAILY PRN 06/01/15 [History] Past Medical History HEENT History: Reports: Allergic Rhinitis, Impaired Vision, Other (See Below) Other HEENT History: wears glasses Cardiovascular History: Reports: None Respiratory History: Reports: None Gastrointestinal History: Reports: Colon Polyp, Diverticulosis Other Gastrointestinal History: diverticulosis,h/o C.Diff,occasional heart burn , hx diverticulitis Genitourinary History: Reports: Renal Calculus [employer] History: Reports: Musculoskeletal History: Reports: Back Pain, Chronic, Fracture Other Musculoskeletal History: hx: fracturing a toe, ganglion cyst left foot Neurological History: Reports: None Psychiatric History: Reports: None Endocrine/Metabolic History: Reports: None Hematologic History: Reports: None Immunologic History: Reports: None Oncologic (Cancer) History: Reports: None Dermatologic History: Reports: None - Infectious Disease History Infectious Disease History: Reports: Chicken Pox, Measles, Mumps - Past Surgical History Head Surgeries/Procedures: Reports: None HEENT Surgical History: Reports: None Cardiovascular Surgical History: Reports: None Respiratory Surgical History: Reports: None GI Surgical History: Reports: Cholecystectomy, Colonoscopy Other GI Surgeries/Procedures: Lap [place]elita Female Surgical History: Reports: Hysterectomy Endocrine Surgical History: Reports: None Neurological Surgical History: Reports: None Musculoskeletal Surgical History: Reports: Arthroscopic Knee, Other (See Below) Other Musculoskeletal Surgeries/Procedures:: knee arthroscopy x3 (right x2, left x1) Oncologic Surgical History: Reports: None Dermatological Surgical History: Reports: None Social & Family History - Family History Family Medical History: Noncontributory Cardiac: Reports: Hypertension, [place] Other Neurological Family History: Father had a stroke Endocrine/Metabolic: Reports: Diabetes, type II Oncologic: Reports: Non-Hodgkin's Lymphoma, Prostate - Tobacco Use Smoking Status *Q: Never Smoker - Caffeine Use Caffeine Use: Reports: Coffee Caffeine Use Comment: 1 Cup/day - Recreational Drug Use Recreational Drug Use: No ED ROS GENERAL - Review of Systems Review Of Systems: Comprehensive ROS is negative, except as noted in HPI. ED EXAM, GENERAL - Physical Exam Exam: See Below (see dictation) Course - Vital Signs Last Recorded V/S: Last Vital Signs Temp 97.2 F 07/30/19 11:56 Pulse 76 07/30/19 13:50 Resp 18 07/30/19 13:50 BP 136/77 07/30/19 13:50 Pulse Ox 98 07/30/19 13:50 - Orders/Labs/Meds Orders: Active Orders 24 hr Category Date Time Status EKG Documentation Completion [RC] STAT Care 07/30/19 13:58 Active Labs: Laboratory Tests 07/30/19 07/30/19 Range/Units 14:10 14:10 WBC 7.27 (4.0-11.0) K/uL RBC 4.78 (4.30-5.90) M/uL Hgb 14.7 (12.0-16.0) g/dL Hct 44.1 (36.0-46.0) % MCV 92.3 (80.0-98.0) fL MCH 30.8 (27.0-32.0) pg MCHC 33.3 (31.0-37.0) g/dL RDW Std Deviation 47.5 (28.0-62.0) fl RDW Coeff of Cat 14 (11.0-15.0) % Plt Count 224 (150-400) K/uL MPV 8.90 (7.40-12.00) fL Neut % (Auto) 69.2 (48.0-80.0) % Lymph % (Auto) 18.7 (16.0-40.0) % Wharton % (Auto) 10.7 (0.0-15.0) % Eos % (Auto) 1.0 (0.0-7.0) % Baso % (Auto) 0.4 (0.0-1.5) % Neut # (Auto) 5.0 (1.4-5.7) K/uL Lymph # (Auto) 1.4 (0.6-2.4) K/uL Wharton # (Auto) 0.8 (0.0-0.8) K/uL Eos # (Auto) 0.1 (0.0-0.7) K/uL Baso # (Auto) 0.0 (0.0-0.1) K/uL Nucleated RBC % 0.0 /100WBC Nucleated RBCs # 0 K/uL Sodium 144 (136-145) mmol/L Potassium 3.5 (3.5-5.1) mmol/L Chloride 106 (98-107) mmol/L Carbon Dioxide 29.7 (21.0-32.0) mmol/L BUN 13 (7.0-18.0) mg/dL Creatinine 0.7 (0.6-1.0) mg/dL Est Cr Clr Drug Dosing 77.01 mL/min Estimated GFR (MDRD) > 60.0 ml/min Glucose 96 (74-106) mg/dL Calcium 9.2 (8.5-10.1) mg/dL Total Bilirubin 1.1 H (0.2-1.0) mg/dL AST 15 (15-37) IU/L ALT 23 (14-63) IU/L Alkaline Phosphatase 118 H (46-116) U/L Troponin I < 0.050 (0.000-0.056) ng/mL Total Protein 6.9 (6.4-8.2) g/dL Albumin 4.0 (3.4-5.0) g/dL Globulin 2.9 (2.6-4.0) g/dL Albumin/Globulin Ratio 1.4 (0.9-1.6) Lipase 165 (73-393) U/L Meds: Medications Discontinued Medications Generic Name Dose Route Start Last Admin Trade Name Freq PRN Reason Stop Dose Admin Sodium Chloride 1,000 mls @ 999 mls/hr 07/30/19 13:53 07/30/19 14:13 Normal Saline IV 07/30/19 14:53 999 mls/hr STAT ONE Administration Ibuprofen 800 mg 07/30/19 12:31 07/30/19 12:39 Motrin PO 07/30/19 12:32 800 mg ONETIME ONE Administration Iopamidol 80 ml 07/30/19 15:23 07/30/19 15:23 Isovue Multipack-370 (76%) IVPUSH 07/30/19 15:24 80 ml ONETIME STA Administration Lorazepam 0.5 mg 07/30/19 13:53 07/30/19 14:13 Ativan IVPUSH 07/30/19 13:54 0.5 mg ONETIME ONE Administration Ondansetron HCl 4 mg 07/30/19 13:54 07/30/19 14:13 Zofran IVPUSH 07/30/19 13:55 4 mg ONETIME ONE Administration Departure - Departure Time of Disposition: 16:06 Disposition: Home, Self-Care 01 Clinical Impression: Soft tissue injury of neck Qualifiers: Encounter type: initial encounter Qualified Code(s): S19.9XXA - Unspecified injury of neck, initial encounter Headache Qualifiers: Headache type: unspecified Headache chronicity pattern: acute headache Intractability: not intractable Qualified Code(s): R51 - Headache - Discharge Information Referrals: Armani Mendiola MD [Primary Care Provider] - Forms: ED Department Discharge Additional Instructions: The following information is given to patients seen in the emergency department who are being discharged to home. This information is to outline your options for follow-up care. We provide all patients seen in our emergency department with a follow-up referral. The need for follow-up, as well as the timing and circumstances, are variable depending upon the specifics of your emergency department visit. If you don't have a primary care physician on staff, we will provide you with a referral. We always advise you to contact your personal physician following an emergency department visit to inform them of the circumstance of the visit and for follow-up with them and/or the need for any referrals to a consulting specialist. The emergency department will also refer you to a specialist when appropriate. This referral assures that you have the opportunity for follow-up care with a specialist. All of these measure are taken in an effort to provide you with optimal care, which includes your follow-up. Under all circumstances we always encourage you to contact your private physician who remains a resource for coordinating your care. When calling for follow-up care, please make the office aware that this follow-up is from your recent emergency room visit. If for any reason you are refused follow-up, please contact the [facility] Emergency Department at and asked to speak to the emergency department charge nurse. [facility] [address] [place] [address] [facility] [address] [place] [address] 1. You can alternate ibuprofen and Tylenol as directed for pain and discomfort. 2. Follow-up with a primary care provider as discussed. Return to the ED as needed and as discussed. Sepsis Event Note - Evaluation Sepsis Screening Result: No Definite Risk - Focused Exam Vital Signs: Vital Signs Temp Pulse Resp BP Pulse Ox 07/30/19 13:50 76 18 136/77 98 07/30/19 11:56 97.2 F 98 18 143/85 H 96 Date Exam was Performed: 07/30/19 Time Exam was Performed: 16:05 - My Orders Last 24 Hours: My Active Orders 07/30/19 13:58 EKG Documentation Completion [RC] STAT - Assessment/Plan Last 24 Hours: My Active Orders 07/30/19 13:58 EKG Documentation Completion [RC] STAT
--- NOTE | 2019-07-30 13:45 | CR ---
Cervical spine: AP, lateral and odontoid views of the cervical spine were obtained. Mild disc space narrowing is noted at C5-6 and C6-7. Scattered anterior osteophytes at C5-6, C6-7 and C7-T1. Vertebral body heights are maintained. Scattered degenerative change throughout the uncovertebral joints at C5-6 through C7-T1. Prevertebral soft tissues are normal. Epiglottis is normal. Impression: 1. Mild diffuse degenerative change as noted above. Diagnostic code #2 This report was dictated in [place] Standard Time
[2019-07-30] MEDS ORDERED: Sodium Chloride 0.9% 1,000 ML IV ONE (13:53)
[2019-07-30] MEDS ORDERED: LORazepam 2 MG/ML SDV IVPUSH ONE (13:53)
[2019-07-30] MEDS ORDERED: Ondansetron 4 MG/2 ML SDV IVPUSH ONE (13:54)
[2019-07-30 14:19] VITALS: BP 136/77; PULSE 76
[2019-07-30 14:53] LABS: BLOOD UREA NITROGEN,BUN 13 mg/dL (7.0-18.0); CARBON DIOXIDE,CO2 29.7 mmol/L (21.0-32.0); CHLORIDE,CL 106 mmol/L (98-107); GLUCOSE RANDOM 96 mg/dL (74-106); LIPASE 165 U/L (73-393); POTASSIUM,K 3.5 mmol/L (3.5-5.1); SODIUM,NA 144 mmol/L (136-145)
[2019-07-30] MEDS ORDERED: Iopamidol 755 MG/ML 500 ML Multipack Bottle IVPUSH STA (15:23)
--- NOTE | 2019-07-30 15:57 | CT ---
Head CT Technique: Multiple axial sections through the brain were obtained. Intravenous contrast was not utilized. Comparison: Prior head CT study of 07/12/19. Findings: Ventricles along with basal cisterns and sulci over the convexities are within normal limits for the patient's age. No abnormal parenchymal densities are seen. No evidence of intracranial hemorrhage. No midline shift or mass-effect is seen. Bone window settings were reviewed which shows no acute calvarial abnormality. Visualized mastoid sinuses are clear. Mild mucosal thickening is seen within the inferior maxillary sinuses on both sides as well as minimal mucosal thickening within the ethmoid sinuses on the left side. Impression: 1. Sinus findings which are most likely chronic. 2. No acute intracranial abnormality is identified. Diagnostic code #2 This report was dictated in [place] Standard Time
--- NOTE | 2019-07-30 15:57 | CT ---
CT neck Technique: Multiple axial sections through the neck were obtained. Intravenous contrast was utilized. Reconstructed coronal and sagittal images were obtained. Comparison: No prior CT neck exam is available. Findings: Visualized lung apices show nothing acute. Thyroid gland appears within normal limits. Soft tissue fullness is seen within the left upper paratracheal region. This appears contiguous around the inferior left thyroid gland but shows no enhancement like the thyroid gland but could possibly represent nonenhancing thyroid goiter. No adenopathy is seen within the neck. Visualized paranasal sinuses show nothing acute. Parotid salivary glands and submandibular salivary glands are within normal limits. Parapharyngeal soft tissues are normal. Enhancing vascular structures appear within normal limits. Bone window settings were reviewed which shows mild scattered disc space narrowing and mild scattered degenerative apophyseal change. Prevertebral soft tissues are normal. Epiglottis is normal in size. Impression: 1. Soft tissue fullness off the inferior left lobe of the thyroid gland which extends along the left paratracheal region. This may represent a nonenhancing thyroid goiter. I-123 SPECT scan could be considered to further evaluate. 2. Degenerative change within the cervical spine. 3. No additional abnormality is appreciated on CT study of the neck. Diagnostic code #2 This report was dictated in [place] Standard Time
--- NOTE | 2019-07-30 15:57 | CR ---
Chest: PA view of the chest was obtained. Comparison: No prior chest imaging. Heart size and mediastinum are normal. Lungs are clear with no acute parenchymal change. Bony structures are grossly intact. Impression: 1. Nothing acute is appreciated on PA chest x-ray. Diagnostic code #1 This report was dictated in [place] Standard Time
== END 2019-07-30 16:24 | disposition home or self-care (01) ==
LOC: MW.ED 11:40
DX: S19.9XXA Unspecified injury of neck, initial encounter (principal); R51 Headache; Z88.2 Allergy status to sulfonamides; Z79.899 Other long term (current) drug therapy; W01.10XA Fall on same level from slipping, tripping and stumbling with subsequent striking against unspecified object, initial encounter; Y93.01 Activity, walking, marching and hiking
CPT/HCPCS: 36415; 70450; 70491; 71045; 72040; 80053; 83690; 84484; 85025; 93005; 96361; 96374; 96375; 99284; A9270; J2060; J2405; J7030; Q9967

== ENCOUNTER 2023-10-06 07:43 | Emergency (ER) | payer BC ==
[2023-10-06 08:24] LABS: BASOPHILS ABSOLUTE AUTO 0.05 K/uL (0.00-0.20); BASOPHILS PERCENT AUTO 0.7 % (0.0-1.0); EOSINOPHILS ABSOLUTE AUTO 0.07 K/uL (0.00-0.45); HEMATOCRIT 40.5 % (37.0-47.0); IMMATURE GRAN ABSOLUTE AUTO 0.01 K/uL (0.00-0.05); IMMATURE GRAN PERCENT AUTO 0.1 % (0.0-0.4); LYMPHOCYTES ABSOLUTE AUTO 0.91 K/uL (1.00-4.80); LYMPHOCYTES PERCENT AUTO 13.1 % (24.0-44.0); MEAN CORPUSCULAR HEMOGLOBIN 31.4 pg (28.0-32.0); MEAN CORPUSCULAR HGB CONC 34.6 g/dL (32.0-36.0); MEAN CORPUSCULAR VOLUME 90.8 fL (83.0-99.0); MEAN PLATELET VOLUME 9.4 fL (9.4-12.3); MONOCYTES ABSOLUTE AUTO 0.95 K/uL (0.00-0.80); MONOCYTES PERCENT AUTO 13.7 % (0.0-8.0); NEUTROPHILS ABSOLUTE AUTO 4.95 K/uL (1.80-7.70); NEUTROPHILS PERCENT AUTO 71.4 % (41.0-71.0); PLATELET COUNT,PLT 204 K/uL (150-400); RED BLOOD CELL COUNT 4.46 M/uL (4.10-5.30); WHITE BLOOD CELL COUNT,WBC 6.94 K/uL (3.9-11.3)
[2023-10-06] MEDS: Sodium Chloride 0.9% 2.5 ML Syringe FLUSH PRN (08:27)
[2023-10-06] MEDS: Ketorolac 30 MG/ML SDV IVPUSH ONE (08:27)
[2023-10-06] MEDS: Sodium Chloride 0.9% 10 ML Syringe FLUSH PRN (08:27)
[2023-10-06] MEDS: Sodium Chloride 0.9% 1,000 ML IV STA (08:28)
[2023-10-06 08:55] LABS: APPEARANCE,URINE SLT CLOUDY; BILIRUBIN,URINE NEGATIVE (NEGATIVE); COLOR,URINE YELLOW; GLUCOSE,URINE NEGATIVE (NEGATIVE); KETONES,URINE NEGATIVE (NEGATIVE); LEUKOCYTE ESTERASE,URINE NEGATIVE (NEGATIVE); NITRITE,URINE NEGATIVE (NEGATIVE); OCCULT BLOOD,URINE MODERATE (NEGATIVE); PH,URINE 7.5 (5.0-8.0); PROTEIN,URINE NEGATIVE (NEGATIVE); UROBILINOGEN,URINE 0.2 EU/dL (<2.0)
[2023-10-06 08:58] LABS: A/G RATIO 1.1 (0.9-1.6); ALBUMIN 3.5 g/dL (3.4-5.0); BILIRUBIN TOTAL 1.3 mg/dL (0.2-1.0); CALCIUM 9.3 mg/dL (8.5-10.1); CARBON DIOXIDE,CO2 27.7 mmol/L (21.0-32.0); CREATININE 0.9 mg/dL (0.6-1.0); EST CRCL DRUG DOSING (CG) 56.78 mL/min; POTASSIUM,K 3.6 mmol/L (3.5-5.1); PROTEIN TOTAL,TP 6.6 g/dL (6.4-8.2)
[2023-10-06 09:30] LABS: AMORPHOUS SEDIMENT,URINE MANY (NEGATIVE); BACTERIA,URINE 1+ (NEGATIVE); EPITHELIAL CELLS,URINE OCCASIONAL (NONE-FEW); MUCUS,URINE FEW (NONE-MOD)
[2023-10-06] MEDS: Iopamidol 755 Mg/ML 100 ML Bottle IVPUSH ONE (09:47)
[2023-10-06 10:56] VITALS: BP 107/57; PULSE 68
== END 2023-10-06 11:00 | disposition home or self-care (01) ==
LOC: MW.ED 07:43
DX: N20.0 Calculus of kidney (principal); Z88.2 Allergy status to sulfonamides; Z79.899 Other long term (current) drug therapy; Z90.49 Acquired absence of other specified parts of digestive tract; Z75.8 Other problems related to medical facilities and other health care
CPT/HCPCS: 36415; 74177; 80053; 81001; 83690; 84484; 85025; 96374; 99284; J1885; J3490; J7030; Q9967

== ENCOUNTER 2023-10-07 18:31 | Emergency (ER) | payer BC ==
[2023-10-07 18:50] LABS: BILIRUBIN,URINE NEGATIVE (NEGATIVE); COLOR,URINE YELLOW; GLUCOSE,URINE NEGATIVE (NEGATIVE); KETONES,URINE NEGATIVE (NEGATIVE); LEUKOCYTE ESTERASE,URINE NEGATIVE (NEGATIVE); NITRITE,URINE NEGATIVE (NEGATIVE); OCCULT BLOOD,URINE SMALL (NEGATIVE); PH,URINE 5.5 (5.0-8.0); PROTEIN,URINE NEGATIVE (NEGATIVE); UROBILINOGEN,URINE 0.2 EU/dL (<2.0)
[2023-10-07 19:00] LABS: APPEARANCE,URINE HAZY; BACTERIA,URINE FEW (NEGATIVE); EPITHELIAL CELLS,URINE MODERATE (NONE-FEW); MUCUS,URINE LIGHT (NONE-MOD)
[2023-10-07] MEDS ORDERED: Morphine 4 MG/ML Syringe IVPUSH PRN (19:24)
[2023-10-07] MEDS ORDERED: Naloxone 0.4 MG/ML SDV IVPUSH PRN (19:24)
[2023-10-07] MEDS: Sodium Chloride 0.9% 1,000 ML IV ONE (19:40)
[2023-10-07] MEDS: Ondansetron 4 MG/2 ML SDV IVPUSH ONE (19:41)
[2023-10-07] MEDS: Sodium Chloride 0.9% 10 ML Syringe FLUSH PRN (19:44)
[2023-10-07] MEDS: Sodium Chloride 0.9% 2.5 ML Syringe FLUSH PRN (19:44)
[2023-10-07] MEDS: Ketorolac 30 MG/ML SDV IVPUSH ONE (20:42)
[2023-10-07 21:25] VITALS: BP 126/86; PULSE 85
== END 2023-10-07 21:25 | disposition home or self-care (01) ==
LOC: MW.ED 18:31
DX: N23 Unspecified renal colic (principal); Z90.49 Acquired absence of other specified parts of digestive tract; Z90.710 Acquired absence of both cervix and uterus; Z79.899 Other long term (current) drug therapy; Z88.1 Allergy status to other antibiotic agents; Z88.2 Allergy status to sulfonamides
CPT/HCPCS: 81001; 96361; 96374; 96375; 99284; J1885; J2405; J3490; J7030

== ENCOUNTER 2024-03-14 07:51 | Day surgery (SDC) | payer MEDICARE ==
[~2024-03-14 07:51] MED LIST changes: -Lactated Ringers 1,000 ML IV SCH; -Lidocaine 2% 5 ML SDV ONE; -Propofol 200 MG/20 ML SDV ONE; -Sodium Chloride 0.9% 10 ML SDV IV PRN; +Sodium Chloride 0.9% 20 ML SDV IV PRN; -fentaNYL 100 MCG/2 ML SDV ONE
[2024-03-14] MEDS: Lactated Ringers 1,000 ML IV SCH (08:15)
[2024-03-14] MEDS ORDERED: propofoL 50 ML ONE (08:37)
[2024-03-14] MEDS ORDERED: ePHEDrine 50 MG/ML SDV ONE (09:00)
[2024-03-14 12:34] VITALS: BP 111/80; PULSE 85
== END 2024-03-14 10:00 | disposition home or self-care (01) ==
LOC: MW.SDS 07:51
PROVIDERS: ATTEND Surgery
DX: Z12.11 Encounter for screening for malignant neoplasm of colon (principal); K57.30 Diverticulosis of large intestine without perforation or abscess without bleeding; Z80.0 Family history of malignant neoplasm of digestive organs; F41.9 Anxiety disorder, unspecified; Z87.891 Personal history of nicotine dependence; Z79.899 Other long term (current) drug therapy; Z88.2 Allergy status to sulfonamides; Z88.1 Allergy status to other antibiotic agents
CPT/HCPCS: 45378; J2704; J7120; 00811; J3490